=== PATIENT | female | born 1950 | race Caucasian/White ===

== ENCOUNTER → 2016-09-15 | Outpatient (CLI) | payer MEDICARE, BC ==
--- NOTE | 2016-09-15 12:05 | MM ---
Reason for exam: screening (asymptomatic). Last mammogram was performed 1 year ago. History: Patient is postmenopausal and is nulliparous. Family history of breast cancer in paternal cousin and breast cancer in maternal aunt. Took estrogen for 13 years beginning at age 37. Physical Findings: A clinical breast exam by your physician is recommended on an annual basis and results should be correlated with mammographic findings. MG Screening Mammo w CAD Bilateral CC and MLO view(s) were taken. Prior study comparison: September 15, 2015, bilateral MG screening mammo w CAD. September 09, 2014, bilateral MG screening mammo w CAD. September 04, 2013, bilateral MG screening mammo w CAD. The breast tissue is heterogeneously dense. This may lower the sensitivity of mammography. Finding: There are regional and grouped calcifications in both breasts. Group of indeterminate calcifications in the right breast 7cm from the nipple, posterior depth lower aspect. ASSESSMENT: Incomplete: need additional imaging evaluation, BI-RAD 0 RECOMMENDATION: Special view mammogram of the right breast. [facility] will attempt to contact patient to return for supplemental views.
== END | disposition home or self-care (01) ==
LOC: RADMAMWWP 10:49
PROVIDERS: ATTEND Internal Medicine
DX: Z12.31 Encounter for screening mammogram for malignant neoplasm of breast (principal)

== ENCOUNTER → 2016-09-19 | Outpatient (CLI) | payer MEDICARE, BC ==
--- NOTE | 2016-09-19 09:36 | MM ---
Reason for exam: additional evaluation requested from abnormal screening. Last mammogram was performed less than 1 month ago. History: Patient is postmenopausal and is nulliparous. Family history of breast cancer in paternal cousin and breast cancer in maternal aunt. Took estrogen for 13 years beginning at age 37. Physical Findings: Nurse did not find any significant physical abnormalities on exam. MG Work Up Mamm w CAD RT CC and MLO view(s) were taken of the right breast. Prior study comparison: September 15, 2016, bilateral MG screening mammo w CAD. September 15, 2015, bilateral MG screening mammo w CAD. The breast tissue is heterogeneously dense. This may lower the sensitivity of mammography. Finding: There is a 7 mm equal density (isodense), oval mass with calcifications in the lower quadrant, central position of the right breast. These results were verbally communicated with the patient and result sheet given to the patient on 09/19/16. ASSESSMENT: Suspicious, BI-RAD 4 RECOMMENDATION: Surgical consultation and stereotactic core biopsy of the right breast. Called Dr. Holguin with mammographic findings and has scheduled an appointment for the patient for 09/30/16 at 11:[address] Le. PRELIMINARY REPORT CALLED AND FAXED TO DR. LE ON 09/19/16 AT 300/TP.
== END | disposition home or self-care (01) ==
LOC: RADMAMWWP 08:14
PROVIDERS: ATTEND Internal Medicine
DX: R92.8 Other abnormal and inconclusive findings on diagnostic imaging of breast (principal)

== ENCOUNTER → 2016-10-07 | Day surgery (SDC) | payer MEDICARE, BC ==
[2016-10-07 07:46] VITALS: RESP 16; BMI 36.1
--- NOTE | 2016-10-07 08:54 | P.PCN ---
Date of Procedure: 10/07/16 Preoperative Diagnosis: Mammographic abnormality right breast Postoperative Diagnosis: Same Procedure(s) Performed: Right breast stereotactic core biopsy of lesion in the lower quadrant central portion of the right breast Implants: Anesthesia: local Surgeon: Palak Le Estimated Blood Loss (ml): 3 IV fluids (ml): 0 Pathology: other (Breast tissue, stereo cores) Condition: stable Disposition: other Indications for Procedure: Patient is a 66-year-old white female who on a mammogram performed 09/19/2016 was noted to have a 7 mm equal density or femoral mass with calcifications in the lower quadrant central position of the right breast. This was considered suspicious and she was scheduled for a stereotactic core biopsy. On physical examination of both breasts no masses of concern were identified. Operative Findings: Microcalcifications in the core biopsy of right breast lesion Description of Procedure: The patient is a 66-year-old white female who on a routine mammogram was noted to have an area of concern in the right breast. Additional screening revealed a 7 mm equal density mass with calcifications in the lower quadrant central position of the right breast. She was recommended to undergo stereotactic core biopsy. Patient was seen and on physical examination preop she did not have any dominant masses or nodules of concern on multi -positional exam of either breast. Particular attention was paid to the right breast in the lower quadrant region and no lesions of concern were identified. No axillary adenopathy of concern was noted bilaterally. The patient was taken to the stereotactic core biopsy room where the area of concern was identified on the Lorad table. The lesion was located in the lower quadrant central position of the right breast. The shortest distance to approach this was on the CC view from inferior. This approach was used. The breast was prepped using Betadine. One percent lidocaine without epinephrine was used to anesthetize the skin as well as the deep tissue in the breast. A mammotome ST 8-gauge sterile probe was utilized to sample the specimen. The patient was taken to the correct coordinates and multiple core biopsies were obtained. The specimen was radiographed and the microcalcifications of concern were identified. A mammomarTyche 3008 localization marker was placed. The patient tolerated the procedure in stable condition. The specimen was sent for pathology. Breast examination: No dominant mass or nodules of concern in either breast no axillary adenopathy of concern Procedure performed: Stereotactic core biopsy of the right breast Location of the lesion: Lower quadrant central position of the right breast lesion with microcalcifications Approach to target lesion: CC view from inferior, shortest distance Prep: Betadine Local anesthetic: 1% lidocaine without epinephrine Biopsy device used: Mammotome ST 8-gauge sterile probe on the lower Lorad table Specimen radiograph: Confirmation of microcalcifications Marker placement: mammomark2 - [id number]
[2016-10-07 09:02] VITALS: BP 150/98; PULSE 84; TEMP 98.4
--- NOTE | 2016-10-07 13:37 | MM ---
Stereotactic core biopsy right breast. HISTORY: Microcalcifications. The calcifications in question within the right breast were targeted by the undersigned. The examination was performed by the surgeon. Specimen radiograph demonstrates numerous calcifications within the specimen submitted. Post procedural mammogram demonstrates appropriate deployment of radiopaque clip marker. The patient tolerated the procedure well and left the department in stable condition. Pathology results are pending. IMPRESSION: Successful stereotactic core biopsy right breast with pathology results pending. 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 FIBROSIS, CYSTS AND ADENOSIS. Recommendation Follow up ultrasound of the right breast in 6 months. SUSHMAD
== END ==
LOC: RADMAMWWP 07:29
PROVIDERS: ATTEND Surgery
DX: N62 Hypertrophy of breast (principal); N60.21 Fibroadenosis of right breast; N60.31 Fibrosclerosis of right breast; N64.89 Other specified disorders of breast; R92.8 Other abnormal and inconclusive findings on diagnostic imaging of breast; Z88.5 Allergy status to narcotic agent
CPT/HCPCS: 88305; 19081; A4648; J2001

== ENCOUNTER → 2017-04-13 | Outpatient (CLI) | payer MEDICARE, BC ==
--- NOTE | 2017-04-13 10:49 | MM ---
Reason for exam: follow-up at short interval from prior study. Last mammogram was performed 7 months ago. History: Patient is postmenopausal and is nulliparous. Family history of breast cancer in paternal cousin and breast cancer in maternal aunt. Benign MG stereo VAD BX RT of the right breast, October 07, 2016. Took estrogen for 13 years beginning at age 37. Physical Findings: Nurse did not find any significant physical abnormalities on exam. MG Diagnostic Mammo RT w CAD CC and MLO view(s) were taken of the right breast. Prior study comparison: September 19, 2016, right breast MG work up mamm w CAD RT. September 15, 2016, bilateral MG screening mammo w CAD. The breast tissue is heterogeneously dense. This may lower the sensitivity of mammography. No significant new findings when compared with previous films. These results were verbally communicated with the patient and result sheet given to the patient on 04/13/17. ASSESSMENT: Benign, BI-RAD 2 RECOMMENDATION: Return to routine screening mammogram schedule for both breasts. Back on schedule.
== END | disposition home or self-care (01) ==
LOC: RADUSWWP 10:12
PROVIDERS: ATTEND Internal Medicine
DX: R92.8 Other abnormal and inconclusive findings on diagnostic imaging of breast (principal)
CPT/HCPCS: 77065

== ENCOUNTER → 2017-09-20 | Outpatient (CLI) | payer MEDICARE, BC ==
--- NOTE | 2017-09-20 13:14 | MM ---
Reason for exam: screening (asymptomatic). Last mammogram was performed 5 months ago. History: Patient is postmenopausal and is nulliparous. Family history of breast cancer in paternal cousin and breast cancer in maternal aunt. Benign MG stereo VAD BX RT of the right breast, October 07, 2016. Took estrogen for 13 years beginning at age 37. Physical Findings: A clinical breast exam by your physician is recommended on an annual basis and results should be correlated with mammographic findings. MG 3D Screening Mammo W/Cad Bilateral CC and MLO view(s) were taken. XCCM view(s) were taken of the right breast. Prior study comparison: April 13, 2017, right breast MG diagnostic mammo RT w CAD. September 19, 2016, right breast MG work up mamm w CAD RT. The breast tissue is heterogeneously dense. This may lower the sensitivity of mammography. Benign appearing bilateral, predominately right calcifications. No suspicious abnormality. Right biopsy marker noted. ASSESSMENT: Benign, BI-RAD 2 RECOMMENDATION: Routine screening mammogram of both breasts in 1 year.
== END | disposition home or self-care (01) ==
LOC: RADMAMWWP 09:36
PROVIDERS: ATTEND Internal Medicine
DX: Z12.31 Encounter for screening mammogram for malignant neoplasm of breast (principal)
CPT/HCPCS: 77063; 77067

== ENCOUNTER → 2018-12-03 | Outpatient (CLI) | payer MEDICARE, BC ==
--- NOTE | 2018-12-04 16:10 | MM ---
Reason for exam: screening (asymptomatic). Last mammogram was performed 1 year and 2 months ago. History: Patient is postmenopausal and is nulliparous. Family history of breast cancer in paternal cousin and breast cancer in maternal aunt. Benign MG stereo VAD BX RT of the right breast, October 07, 2016. Took estrogen for 13 years beginning at age 37. Physical Findings: A clinical breast exam by your physician is recommended on an annual basis and results should be correlated with mammographic findings. MG 3D Screening Mammo W/Cad Bilateral CC and MLO view(s) were taken. XCCL view(s) were taken of the right breast. Prior study comparison: September 20, 2017, bilateral MG 3d screening mammo w/cad. April 13, 2017, right breast MG diagnostic mammo RT w CAD. The breast tissue is heterogeneously dense. This may lower the sensitivity of mammography. There are benign-appearing bilateral breast calcifications. No suspicious abnormality. There is a right breast biopsy marker noted. No significant new finding when compared with prior studies. ASSESSMENT: Benign, BI-RAD 2 RECOMMENDATION: Routine screening mammogram of both breasts in 1 year.
== END | disposition home or self-care (01) ==
LOC: RADMAMWWP 10:48
PROVIDERS: ATTEND Internal Medicine
DX: Z12.31 Encounter for screening mammogram for malignant neoplasm of breast (principal)
CPT/HCPCS: 77063; 77067

== ENCOUNTER 2019-08-06 13:07 | Emergency (ER) | payer MEDICARE, BC ==
[2019-08-06 13:18] VITALS: BP 151/94; PULSE 91; RESP 20; TEMP 100.4
[2019-08-06 14:11] LABS: Appearance,Urine Cloudy (Clear); Bilirubin,Urine Negative (Negative); Blood,Urine Negative (Negative); Color,Urine Light Yellow; Glucose,Urine (UA) Negative (Negative); Hyaline Casts,Urine 1 /lpf (0-2); Ketones,Urine Negative (Negative); Leukocyte Esterase,Urine Trace (Negative); Mucus,Urine Rare /hpf; Nitrite,Urine Negative (Negative); Protein,Urine Negative (Negative); RBC,Urine <1 /hpf (0-5); Squamous Epithelial Cell,Urine 3 /hpf (0-4); Urobilinogen,Urine <2.0 mg/dL (<2.0); WBC,Urine 4 /hpf (0-5)
--- NOTE | 2019-08-06 14:30 | XR ---
EXAMINATION TYPE: XR chest 2V DATE OF EXAM: 08/06/2019 COMPARISON: None INDICATION: Fever of unknown origin TECHNIQUE: Frontal and lateral views of the chest are obtained. FINDINGS: The heart size is normal. The pulmonary vasculature is normal. The lungs are clear. Cholecystectomy clips are in the right upper quadrant of the abdomen. IMPRESSION: 1. No acute pulmonary process.
--- NOTE | 2019-08-06 14:37 | ED ---
Eye Problem HPI - General Chief complaint: Eye Problems Stated complaint: eye pain Time Seen by Provider: 08/06/19 13:21 Source: patient Mode of arrival: ambulatory Limitations: no limitations - History of Present Illness Initial comments: 68-year-old female presenting today for chief complaint of right eye redness. She states she woke up with the redness. She states she felt like it was dull aching initially she states that when away after a few minutes upon awakening. Patient denies any severe sharp stabbing pains denies any headache or lesions on the face or the scalp. Patient denies any headache nausea vomiting patient denies any visual changes. Patient denies any grinding or exposure to known foreign bodies that may have gotten into the eye. Patient denies any direct trauma to the eye denies any drainage or surrounding redness. Patient has no additional complaints she states she wears glasses. Patient appears well on arrival no distress. Found to have fever 100.4F. however patient denies any abdominal pain diarrhea nausea vomiting chest pain shortness breath sore throat body she denies a dysuria or urgency frequency or history of urinary tract infections. Patient states she really has no complaints and is not sure why she has a fever. She states she does not really want that evaluated and states "I feel fine". - Related Data Home Medications Medication Instructions Recorded Confirmed Atenolol 100 mg PO DAILY 10/03/16 10/07/16 Diclofenac Sodium [Voltaren] 75 tab PO DAILY PRN 10/03/16 10/07/16 Hydrochlorothiazide 25 tab PO DAILY 10/03/16 10/07/16 Lovastatin [Mevacor] 40 tab PO DAILY 10/03/16 10/07/16 Terbinafine [LamISIL] 250 tab PO DAILY 10/03/16 10/07/16 metFORMIN HCL [Glucophage] 500 mg PO BID 10/03/16 10/07/16 Allergies Allergy/AdvReac Type Severity Reaction Status Date / Time codeine AdvReac Nausea & Verified 08/06/19 13:18 Vomiting prochlorperazine AdvReac Nausea & Verified 08/06/19 13:18 [From Compazine] Vomiting Review of Systems ROS Statement: Those systems with pertinent positive or pertinent negative responses have been documented in the HPI. ROS Other: All systems not noted in ROS Statement are negative. Past Medical History Past Medical History: Diabetes Mellitus, Hyperlipidemia, Hypertension Additional Past Medical History / Comment(s): ARTHRITIS History of Any Multi-Drug Resistant Organisms: None Reported Past Surgical History: Cholecystectomy, Hysterectomy, Tonsillectomy Past Anesthesia/Blood Transfusion Reactions: No Reported Reaction Past Psychological History: No Psychological Hx Reported Smoking Status: Never smoker Past Alcohol Use History: None Reported Past Drug Use History: None Reported General Exam - General Exam Comments Initial Comments: General: The patient is awake and alert, in no distress, and does not appear acutely ill. Eye: +3 mm pupils are equal, round and reactive to light, extra-ocular movements are intact. No nystagmus. There is injection of the conjunctiva b/l. No signs of icterus. OD 20/30 OS 20/30 OU 20/30. IOP OD, OS 23. No surrounding redness. No fluorescein uptake and no evidence of foreign body. Right lateral half salt conjunctival hemorrhage Ears, nose, mouth and throat: There are moist mucous membranes and no oral lesions. Neck: The neck is supple, there is no tenderness or JVD. Cardiovascular: There is a regular rate and rhythm. No murmur, rub or gallop is appreciated. Respiratory: Lungs are clear to auscultation, respirations are non-labored, breath sounds are equal. No wheezes, stridor, rales, or rhonchi. Musculoskeletal: Normal ROM, no tenderness. Strength 5/5. Sensation intact. Radial pulses equal bilaterally 2+. Neurological: A&O x 3. CN II-XII intact, There are no obvious motor or sensory deficits. Coordination appears grossly intact. Speech is normal. Skin: Skin is warm and dry and no rashes or lesions are noted. Psychiatric: Cooperative, appropriate mood & affect, normal judgment. Limitations: no limitations Course Vital Signs 08/06/19 13:15 Temperature 100.4 F H Pulse Rate 91 Respiratory 20 Rate Blood Pressure 151/94 O2 Sat by Pulse 97 Oximetry Medical Decision Making - Medical Decision Making 68-year-old feel presenting with right lateral subconjunctival hemorrhage. There is no areas of fluorescein uptake no visual change. Patient is adequate visual acuity. Pressures within acceptable limits. Patient has no pain currently. Normal extraocular eye movements. No trauma. Patient is followed at low-grade fever there is no evidence of orbital cellulitis as cause. No drainage. No focalizing symptoms. Patient CXR clear. Covid (-). UA unremarkable. Patient will be discharged with ophthalmology and primary care follow-up patient is agreeable to this care plan discharge at this time. - Lab Data Lab Results 08/06/19 08/06/19 Range/Units 14:00 14:00 Urine Color Light Yellow Urine Appearance Cloudy H (Clear) Urine pH 5.0 (5.0-8.0) Ur Specific [place] 1.010 (1.001-1.035) Urine Protein Negative (Negative) Urine Glucose (UA) Negative (Negative) Urine Ketones Negative (Negative) Urine Blood Negative (Negative) Urine Nitrite Negative (Negative) Urine Bilirubin Negative (Negative) Urine Urobilinogen <2.0 (<2.0) mg/dL Ur Leukocyte Esterase Trace H (Negative) Urine RBC <1 (0-5) /hpf Urine WBC 4 (0-5) /hpf Ur Squamous Epith Cells 3 (0-4) /hpf Hyaline Casts 1 (0-2) /lpf Urine Mucus Rare H (None) /hpf Coronavirus (PCR) Not Detected (Not Detectd) Disposition Clinical Impression: Subconjunctival hemorrhage, Redness of right eye, Low grade fever Disposition: HOME SELF-CARE Condition: Good Instructions (If sedation given, give patient instructions): Subconjunctival Hemorrhage (ED) Additional Instructions: Please use medication as discussed. Please follow-up with family doctor in the next 2 days, for routine labs/evaluation-secondary to low grade fever. Please return to emergency room if the symptoms increase or worsen or for any other concerns. Is patient prescribed a controlled substance at d/c from ED?: No Referrals: Tomy Holguin MD [Primary Care Provider] - 1-2 days Time of Disposition: 14:37
== END 2019-08-06 14:44 | disposition home or self-care (01) ==
LOC: EC 13:07
DX: Z03.818 Encounter for observation for suspected exposure to other biological agents ruled out (principal); H11.31 Conjunctival hemorrhage, right eye; R50.9 Fever, unspecified; E11.9 Type 2 diabetes mellitus without complications; E78.5 Hyperlipidemia, unspecified; I10 Essential (primary) hypertension; M19.90 Unspecified osteoarthritis, unspecified site; Z79.84 Long term (current) use of oral hypoglycemic drugs; Z79.1 Long term (current) use of non-steroidal anti-inflammatories (NSAID); Z79.899 Other long term (current) drug therapy; Z88.5 Allergy status to narcotic agent; Z88.8 Allergy status to other drugs, medicaments and biological substances
CPT/HCPCS: 71046; 81001; 87635; 99283

== ENCOUNTER → 2021-08-24 | Outpatient (CLI) | payer MEDICARE, BC ==
--- NOTE | 2021-08-25 11:05 | MM ---
Reason for Exam: Additional evaluation requested from abnormal screening. Last screening mammogram was performed less than 1 month ago. Patient History: Menarche at age 10. Patient has no children. Left ovary removed at age 37. Right ovary removed at age 37. Hysterectomy at age 37. Postmenopausal. Estrogen for 13 years from age 37 until age 50. 10/07/2016, Benign Core Biopsy on the right side. Paternal cousin had breast cancer. Maternal aunt had breast cancer. Risk Values: Tatiana 5 year model risk: 2.3%. NCI Lifetime model risk: 5.7%. Film Views: 3D and 2D Synthesized Bilateral CC magnification views were taken. 3D and 2D Synthesized Bilateral ML magnification views were taken. 3D and 2D Synthesized Bilateral LM views were taken. Prior Study Comparison: 12/03/2018 Bilateral Screening Mammogram, [facility]. 08/17/2021 Bilateral Screening Mammogram, [facility]. Tissue Density: The breast tissue is heterogeneously dense. This may lower the sensitivity of mammography. Findings: Analyzed By CAD. Regional and grouped calcifications 10 'clock posterior right breast have increased. These are heterogeneous, biopsy recommended. New punctate grouped calcifications in the left breast at 2 o'clock are new, biopsy recommended. These results were verbally communicated with the patient at the time of exam. Overall Assessment: Suspicious, BI-RAD 4 Management: Stereotactice Core Biopsy of both breasts. Right 10 o'clock posterior calcifications. Left 2 o'clock calcifications.
== END | disposition home or self-care (01) ==
LOC: RADMAMWWP 08:57
PROVIDERS: ATTEND Internal Medicine
DX: R92.1 Mammographic calcification found on diagnostic imaging of breast (principal); Z78.0 Asymptomatic menopausal state; Z90.721 Acquired absence of ovaries, unilateral; Z80.3 Family history of malignant neoplasm of breast
CPT/HCPCS: 77066; G0279; 77062

== ENCOUNTER → 2021-09-17 | Outpatient (CLI) | payer MEDICARE, BC ==
[2021-09-17 07:32] VITALS: BP 145/88; PULSE 75; RESP 16; TEMP 98.7
--- NOTE | 2021-09-17 07:49 | P.PN ---
Subjective Progress Note Date: 09/17/21 Principal diagnosis: Abnormal bilateral mammogram This is a 71-year-old white female seen in consultation for Dr. Holgu[place] [address]. [place] [address] is special views of both breasts [place]. [place] [address] the findings were 10:00 posterior right breast regional group calcifications which had increased. In addition calcifications were noted in the left breast at the 2 o'clock position for which biopsy was recommended. Bilateral stereotactic core breast biopsies were recommended. Of importance is the fact that the [place] [address] which was benign. The patient does not feel any new lumps masses or nodules of concern in either breast. She is not complaining of any recent breast trauma or infection the breast. Caffeine: 2 pop/day nicotine: none chocolate: occasional BCP: none hormones: hysterectomy at 37 and took them until 50, premarin Family History: maternal aunt: of breast cancer paternal cousin: breast cancer sister: bladder cancer Hormonal History: menarche: 10 G0 menopause: hysterectomy at 37 both ovaries were removed; done for pain and she was on Premarin for approximately 14 years Surgical history: Hysterectomy bilateral salpingo-oophorectomy gallbladder tonsil and adenoids Medical History: diabetes/ diet controlled Social History: nicotine: none alcohol: none drugs: none Review of systems: Constitutional: Negative Heart: none Lungs: none GI: none : none psych: none Musculoskeletal:arthritis allergies: as noted bleeding: none Objective - Constitutional General appearance: Present: cooperative - EENT Eyes: Present: EOMI ENT: Present: hearing grossly normal - Neck Neck: Present: normal ROM - Respiratory Respiratory: bilateral: CTA - Cardiovascular Heart sounds: normal: S1, S2 - Gastrointestinal General gastrointestinal: Present: soft - Integumentary Integumentary: Present: normal turgor - Musculoskeletal Musculoskeletal: Present: gait normal - Psychiatric Psychiatric: Present: A&O x's 3, appropriate affect, intact judgment & insight - Additional findings Additional findings: Breast Exam: BRA: 42B Inspection: Bilateral grade 3 ptosis Palpation: Right breast: Multiple positional exam fibrocystic changes no dominant masses or nodules of concern Right axilla: No adenopathy of concern Left breast: Multi-positional exam fibrocystic changes no dominant masses or nodules of concern Left axilla: No adenopathy of concern Assessment and Plan Assessment: Impression: Bilateral mammographic abnormality microcalcifications Fibrocystic breast changes Plan: Bilateral stereotactic core biopsy Risk and benefits of the procedure discussed with the patient. Risks include but are not limited to bleeding, infection, reaction to the anesthetic. If the lesion biopsy were to be discordant and possible further tissue acquisition would be necessary. The patient understands and wishes to proceed. CC: Dr. Holguin
== END ==
LOC: WWCWWP 06:43
PROVIDERS: ATTEND Surgery
DX: N60.12 Diffuse cystic mastopathy of left breast (principal); N60.11 Diffuse cystic mastopathy of right breast; E11.9 Type 2 diabetes mellitus without complications; R92.1 Mammographic calcification found on diagnostic imaging of breast; Z88.5 Allergy status to narcotic agent; Z88.8 Allergy status to other drugs, medicaments and biological substances

== ENCOUNTER → 2021-09-17 | Day surgery (SDC) | payer MEDICARE, BC ==
[2021-09-17 07:11] VITALS: RESP 16; TEMP 98.7
--- NOTE | 2021-09-17 09:13 | P.PCN ---
Date of Procedure: 09/17/21 Preoperative Diagnosis: Bilateral microcalcifications of concern on mammograms Postoperative Diagnosis: Same Procedure(s) Performed: Bilateral stereotactic core breast biopsies Anesthesia: local Surgeon: Palak Le Pathology: other (Left breast: Breast tissue microcalcifications of concern identified and radiograph of specimenRight breast: Breast tissue, microcalcifica tions of concern identified and radiograph of specimen) Condition: stable Disposition: same day Indications for Procedure: Bilateral mammographic microcalcifications of concern Operative Findings: Radiograph of breast tissue bilateral breast reveals microcalcifications of concern Description of Procedure: Nancy is a 71-year-old white female who was noted on a routine mammogram to have microcalcifications of concern in both breasts. She was recommended to undergo bilateral stereotactic core biopsy. Risks and benefits of the procedure were discussed with the patient; she understood and wished to proceed. Alternatives such as watchful waiting or open biopsy were considered but not recommended. Breasts: Lesion upper outer quadrant Right breast: Lesion upper outer quadrant The patient was taken to the stereotactic core biopsy room. She was positioned prone on the lo-rad table. The left breast was approached initially. The lesion was in the upper outer quadrant. A lateral to medial approach was utilized. A cheese cutter film was obtained. The area of concern was identified. The lesion was targeted. The breast was prepped using Betadine. 20 mL of 1% lidocaine were used to anesthetize the area of concern. A 9-gauge vacuum- assisted core rotating biopsy needle was driven to the correct coordinates. Prefire films were obtained and the needle was noted to be in the correct location. The needle was fired. Post-fire films revealed the needle to be in the correct location. Multiple core biopsy specimens were obtained and the specimens were radiographed. The calcifications of concern were noted to be in the specimens. A secure pam top hat Clip was placed. The clip was noted to be in the correct location. The patient was repositioned on the lo-rad table. A CC from above approach was utilized for the right breast. A cheese cutter film was obtained. The lesion of concern was identified. The lesion was targeted. The breast was prepped using Betadine. 20 mL of 1% lidocaine were used to anesthetize the area of concern. A 9-gauge vacuum-assisted core rotating biopsy needle was driven to the correct coordinates. Prefire films were obtained and the needle was noted to be in the correct location. The needle was fired. Post fire films again revealed the needle to be in the correct location. Approximately 6 core biopsy specimens were obtained. The specimens were radiographed. The calcifications of concern were noted to be in the specimen. A secure pam top hat clip was placed. The clip was noted to be in the correct location. All specimens were sent to pathology. The patient will follow-up with Dr. Mendez next week. A postprocedure bilateral mammogram will be performed to be confirm location of clip placement.
[2021-09-17 09:21] VITALS: BP 129/84; PULSE 79
--- NOTE | 2021-09-28 14:00 | MM ---
Date of Procedure: 09/17/21 Preoperative Diagnosis: Bilateral microcalcifications of concern on mammograms Postoperative Diagnosis: Same Procedure(s) Performed: Bilateral stereotactic core breast biopsies Anesthesia: local Surgeon: Palak Le Pathology: other (Left breast: Breast tissue microcalcifications of concern identified and radiograph of specimenRight breast: Breast tissue, microcalcifications of concern identified and radiograph of specimen) Condition: stable Disposition: same day Indications for Procedure: Bilateral mammographic microcalcifications of concern Operative Findings: Radiograph of breast tissue bilateral breast reveals microcalcifications of concern Description of Procedure: Nancy is a 71-year-old white female who was noted on a routine mammogram to have microcalcifications of concern in both breasts. She was recommended to undergo bilateral stereotactic core biopsy. Risks and benefits of the procedure were discussed with the patient; she understood and wished to proceed. Alternatives such as watchful waiting or open biopsy were considered but not recommended. Breasts: Lesion upper outer quadrant Right breast: Lesion upper outer quadrant The patient was taken to the stereotactic core biopsy room. She was positioned prone on the lo-rad table. The left breast was approached initially. The lesion was in the upper outer quadrant. A lateral to medial approach was utilized. A student records coordinator film was obtained. The area of concern was identified. The lesion was targeted. The breast was prepped using Betadine. 20 mL of 1% lidocaine were used to anesthetize the area of concern. A 9-gauge vacuum- assisted core rotating biopsy needle was driven to the correct coordinates. Prefire films were obtained and the needle was noted to be in the correct location. The needle was fired. Post-fire films revealed the needle to be in the correct location. Multiple core biopsy specimens were obtained and the specimens were radiographed. The calcifications of concern were noted to be in the specimens. A secure pam top hat Clip was placed. The clip was noted to be in the correct location. The patient was repositioned on the lo-rad table. A CC from above approach was utilized for the right breast. A student records coordinator film was obtained. The lesion of concern was identified. The lesion was targeted. The breast was prepped using Betadine. 20 mL of 1% lidocaine were used to anesthetize the area of concern. A 9-gauge vacuum-assisted core rotating biopsy needle was driven to the correct coordinates. Prefire films were obtained and the needle was noted to be in the correct location. The needle was fired. Post fire films again revealed the needle to be in the correct location. Approximately 6 core biopsy specimens were obtained. The specimens were radiographed. The calcifications of concern were noted to be in the specimen. A secure pam top hat clip was placed. The clip was noted to be in the correct location. All specimens were sent to pathology. The patient will follow-up with Dr. Mendez next week. A postprocedure bilateral mammogram will be performed to be confirm location of clip placement. JP
== END ==
LOC: RADMAMWWP 06:47
PROVIDERS: ATTEND Surgery
DX: D05.12 Intraductal carcinoma in situ of left breast (principal); D24.1 Benign neoplasm of right breast; N60.11 Diffuse cystic mastopathy of right breast
CPT/HCPCS: 88305; 88342; 88341; 19081; 19082; A4648; J2001

== ENCOUNTER → 2021-09-23 | Outpatient (CLI) | payer MEDICARE, BC ==
[2021-09-23 14:19] VITALS: BP 150/91; PULSE 78; RESP 16; TEMP 98.3
--- NOTE | 2021-09-23 15:12 | P.PN ---
Subjective Progress Note Date: 09/23/21 Principal diagnosis: DCIS left breast Abnormal bilateral mammogram This is a 71-year-old white female seen in consultation for Dr. Holguin regarding a mammographic abnormality bilaterally on . She underwent a bilateral screening mammogram on is special views of both breasts were recommended. These were performed on the findings were 10:00 posterior right breast regional group calcifications which had increased. In addition calcifications were noted in the left breast at the 2 o'clock position for which biopsy was recommended. Bilateral stereotactic core breast biopsies were recommended. Of importance is the fact that the patient had a prior right breast core biopsy on which was benign. The patient does not feel any new lumps masses or nodules of concern in either breast. She is not complaining of any recent breast trauma or infection the breast. 09-23-21 The patient on 09-17-21 underwent a bilateral breat stero biopsy. The right breast was benign, the left revealed DCIS. The clip had migrated about 1 cm lateral on the left side. The patient tolerated the procedure with some bilateral mild oozing. Caffeine: 2 pop/day nicotine: none chocolate: occasional BCP: none hormones: hysterectomy at 37 and took them until 50, premarin Family History: maternal aunt: of breast cancer paternal cousin: breast cancer sister: bladder cancer Hormonal History: menarche: 10 G0 menopause: hysterectomy at 37 both ovaries were removed; done for pain and she was on Premarin for approximately 14 years Surgical history: Hysterectomy bilateral salpingo-oophorectomy gallbladder tonsil and adenoids Medical History: diabetes/ diet controlled Social History: nicotine: none alcohol: none drugs: none Review of systems: Constitutional: Negative Heart: none Lungs: none GI: none : none psych: none Musculoskeletal:arthritis allergies: as noted bleeding: none Objective - Vital Signs Vital signs: Vital Signs Temp 98.3 F 09/23/21 14:16 Pulse 78 09/23/21 14:16 Resp 16 09/23/21 14:16 BP 150/91 09/23/21 14:16 Pulse Ox 96 09/23/21 14:16 FiO2 Intake & Output 09/22/21 09/23/21 09/23/21 18:59 06:59 18:59 Weight 103.419 kg - Exam BMI: 33.7 - Constitutional General appearance: Present: cooperative - EENT Eyes: Present: EOMI ENT: Present: hearing grossly normal - Neck Neck: Present: normal ROM - Respiratory Respiratory: bilateral: CTA - Cardiovascular Heart sounds: normal: S1, S2 - Integumentary Integumentary: Present: normal turgor - Psychiatric Psychiatric: Present: A&O x's 3, appropriate affect, intact judgment & insight - Additional findings Additional findings: Breast examination: Visual inspection of the breast reveals bilateral ecchymosis, no evidence of infection No hematoma on the right, small hematoma on the left Assessment and Plan Assessment: Impression: Fibrocystic breast changes on the right Small focus of DCIS on the left Plan: Presentation of case at tumor board Appointment with radiation oncology appointment with medical oncology CC: Dr. Holguin
== END ==
LOC: WWCWWP 14:02
PROVIDERS: ATTEND Surgery
DX: N60.11 Diffuse cystic mastopathy of right breast (principal); D05.12 Intraductal carcinoma in situ of left breast; D05.11 Intraductal carcinoma in situ of right breast; E11.9 Type 2 diabetes mellitus without complications; Z88.5 Allergy status to narcotic agent; Z88.8 Allergy status to other drugs, medicaments and biological substances

== ENCOUNTER → 2021-11-04 | Outpatient (CLI) | payer MEDICARE, BC ==
[2021-11-04 15:19] VITALS: BP 141/94; PULSE 53; RESP 17; TEMP 98.2
--- NOTE | 2021-11-04 15:32 | P.PN ---
Subjective Progress Note Date: 11/04/21 Principal diagnosis: DCIS left breast DCIS left breast Abnormal bilateral mammogram This is a 71-year-old white female seen in consultation for Dr. Holgu[place] [id number]. [place] [address] is special views of both breasts were recommended. These were performed on the findings were 10:00 posterior right breast regional group calcifications which had increased. In addition calcifications were noted in the left breast at the 2 o'clock position for which biopsy was recommended. Bilateral stereotactic core breast biopsies were recommended. Of importance is the fact that the patient had a prior right breast core biopsy on which was benign. The patient does not feel any new lumps masses or nodules of concern in either breast. She is not complaining of any recent breast trauma or infection the breast. 09-23-21 The patient on 09-17-21 underwent a bilateral breat stero biopsy. The right breast was benign, the left revealed DCIS. The clip had migrated about 1 cm lateral on the left side. The patient tolerated the procedure with some bilateral mild oozing. 10-07-[address] Chance 10-19-21 case presented at tumor board; patient declined genetic testing Caffeine: 2 pop/day nicotine: none chocolate: occasional BCP: none hormones: hysterectomy at 37 and took them until 50, premarin Family History: maternal aunt: of breast cancer paternal cousin: breast cancer sister: bladder cancer Hormonal History: menarche: 10 G0 menopause: hysterectomy at 37 both ovaries were removed; done for pain and she was on Premarin for approximately 14 years Surgical history: Hysterectomy bilateral salpingo-oophorectomy gallbladder tonsil and adenoids Medical History: diabetes/ diet controlled Social History: nicotine: none alcohol: none drugs: none Review of systems: Constitutional: Negative Heart: none Lungs: none GI: none : none psych: none Musculoskeletal:arthritis allergies: as noted bleeding: none Objective - Constitutional General appearance: Present: cooperative - EENT Eyes: Present: EOMI ENT: Present: hearing grossly normal - Neck Neck: Present: normal ROM - Respiratory Respiratory: bilateral: CTA - Cardiovascular Heart sounds: normal: S1, S2 Abnormal Heart Sounds: Present: systolic murmur - Gastrointestinal General gastrointestinal: Present: soft - Integumentary Integumentary: Present: normal turgor - Musculoskeletal Musculoskeletal: Present: gait normal - Psychiatric Psychiatric: Present: A&O x's 3, appropriate affect, intact judgment & insight - Additional findings Additional findings: Breast Exam: BRA: 42B inspection: grade 3 ptosis Operation: Right breast: Multi-positional exam fibrocystic changes no dominant masses or nodules of concern Right axilla: No adenopathy of concern Left breast: Multi-positional exam fibrocystic changes no dominant masses or nodules of concern Left axilla: No adenopathy of concern Assessment and Plan Assessment: Impression: Left breast ductal carcinoma in situ Atrial fibrillation Diabetes Plan: Needle localization lumpectomy left breast, no mastopexy incision; there appears to have been some lateral migration of the clip placed at biopsy which was be taken into account at the time of needle localization. Endocrine: The case was reviewed with Dr. Mercado. It does appear that there is about a centimeter of lateral migration of the clip. He has recommended lateral to medial needle localization with extension of the excision slightly beyond for the clip was located. Risk and benefits of the procedure discussed with the patient. Risks include but are not limited to bleeding, infection, reaction to the anesthetic. The patient understands and wishes to proceed. CC: Dr. Holguin
== END ==
LOC: WWCWWP 15:06
PROVIDERS: ATTEND Surgery
DX: D05.12 Intraductal carcinoma in situ of left breast (principal); I48.91 Unspecified atrial fibrillation; E11.9 Type 2 diabetes mellitus without complications; Z88.5 Allergy status to narcotic agent; Z88.8 Allergy status to other drugs, medicaments and biological substances

== ENCOUNTER → 2021-11-05 | Outpatient (CLI) | payer MEDICARE, BC ==
--- NOTE | 2021-11-08 07:44 | CT ---
EXAMINATION TYPE: CT soft tissue neck wo con DATE OF EXAM: 11/05/2021 COMPARISON: None HISTORY: 71 year-old female M54.2, posterior neck pain that radiates into shoulder TECHNIQUE: Contiguous axial scanning of the soft tissues of the neck without IV contrast. Coronal and sagittal reconstructions performed. CT DLP: 636.30 mGycm Automated exposure control for dose reduction was used. FINDINGS: Ectatic ascending aorta through 3.7 cm. Borderline enlarged right and left main pulmonary arteries me asuring up to 3.0 cm. Correlate for pulmonary hypertension. There is bovine configuration to the aortic arch along with very direct takeoff of the left vertebral artery directly from the aortic arch. Benign hyperostosis frontalis interna. Associated bifrontal calvarial artifacts. Otherwise, visualize d intracranial structures, orbits and globes, paranasal sinuses, and mastoid air cells appear clear. Rightward nasal septal deviation. Lack of IV contrast limits assessment of the cervical mucosal space, lymph nodes, and vascular struct ures. Allowing for this limitation, the nasopharynx appears clear. There is soft tissue asymmetry at the level of the right tonsillar pillar. Additional asymmetric part ial soft tissue effacement right piriform sinus. This may be positional or secondary to some asymmetr ic palatine tonsillar hypertrophy. Direct visualization by ENT is recommended. Epiglottis and prevertebral soft tissues are satisfactory. Otherwise, glottic and subglottic structures as well as the tracheal column and visualized upper lung s are clear. Possible 9 mm nodule lower pole left thyroid lobe can be further evaluated with thyroid ultrasound. The submandibular and bilateral parotid glands are visualized without gross abnormality. No cervical lymphadenopathy by CT size criteria. There is subtle cutaneous lesion along the lateral r ight jaw, probably a normal. Correlate with direct inspection. Axial image 60 and coronal image 33. There is moderate to advanced disc/endplate degenerative change from C4 through T2 levels. Degenerati ve grade 1 anterolisthesis C3-C4. Multilevel hypertrophic facet arthropathy, particularly towards the left. Moderate to severe left neuroforaminal stenosis at C3-C4, moderate on the right at C5-C6. IMPRESSION: 1. SOFT TISSUE ASYMMETRY AT THE LEVEL OF THE RIGHT TONSILLAR PILLAR AND RIGHT PIRIFORM SINUS. THIS MA Y BE POSITIONAL OR SECONDARY TO SOME ASYMMETRIC PALATINE TONSILLAR HYPERTROPHY. DIRECT VISUALIZATION BY ENT IS RECOMMENDED TO EXCLUDE A MUCOSAL LESION HERE. 2. POSSIBLE 9 MM LEFT LOWER POLE THYROID NODULE CAN BE FURTHER EVALUATED WITH THYROID ULTRASOUND. 3. CUTANEOUS LESION ALONG THE RIGHT LATERAL JAW, PROBABLY A MOLE. CORRELATE WITH DIRECT INSPECTION. 4. MODERATE TO ADVANCED SPONDYLOTIC CHANGE IN THE CERVICAL SPINE ABOVE, GREATER TOWARDS THE LEFT. 5. INCIDENTAL: FINDINGS MAY REFLECT UNDERLYING PULMONARY ARTERIAL HYPERTENSION.
== END | disposition home or self-care (01) ==
LOC: RADCTMAIN 15:02
PROVIDERS: ATTEND Internal Medicine
DX: M47.812 Spondylosis without myelopathy or radiculopathy, cervical region (principal); M99.71 Connective tissue and disc stenosis of intervertebral foramina of cervical region
CPT/HCPCS: 70490

== ENCOUNTER → 2021-11-17 | Outpatient (CLI) | payer MEDICARE, BC ==
--- NOTE | 2021-11-18 08:46 | US ---
EXAMINATION TYPE: US thyroid st tissue head/neck DATE OF EXAM: 11/17/2021 COMPARISON: CT 11/05/2021 CLINICAL HISTORY: 71-year-old female R22.0 SWELLING/MASS. CT showed left thyroid nodule. GLAND SIZE: Right Lobe: 3.7 x 1.3 x 1.5 cm Overall Parenchyma: heterogenous Left Lobe: 4.2 x 1.5 x 1.5 cm Overall Parenchyma: heterogeneous Isthmus Thickness: 0.3 cm NODULES RIGHT: # of nodules measured on right: 0 LEFT: # of nodules measured on left: 3 1. 1.1 X 0.9 x 0.7 cm, mid lateral, mixed cystic and solid, hyperechoic TR 3 nodule, which is wider than tall, with smooth margins, without echogenic foci. Prior size: no prior 2. 0.8 X 0.5 x 0.6 cm, lower lateral, mixed cystic and solid, isoechoic TR 3 nodule, which is wide r than tall, with smooth margins, without echogenic foci. Prior size: no prior 3. 1.0 X 1.0 x 0.7 cm, lower mid, mixed cystic and solid, isoechoic TR 3 nodule, which is wider constance n tall, with smooth margins, without echogenic foci. Prior size: no prior ISTHMUS: # of nodules measured in the isthmus: 0 Bilateral neck scanned, no evidence of lymphadenopathy. IMPRESSION: Three mixed solid cystic TR3 nodules in the left lobe ranging in size from 0.8 cm to 1.1 cm. These ca n be followed by ultrasound. FNA if they reach 2.5 cm or sooner if their characteristics change.
== END | disposition home or self-care (01) ==
LOC: RADUSWWP 16:08
PROVIDERS: ATTEND Internal Medicine
DX: R22.0 Localized swelling, mass and lump, head (principal)
CPT/HCPCS: 76536

== ENCOUNTER → 2021-12-16 | Outpatient (CLI) | payer MEDICARE, BC ==
--- NOTE | 2021-12-16 19:21 | BD ---
EXAMINATION TYPE: Axial Bone Density DATE OF EXAM: 12/16/2021 CLINICAL HISTORY: 71 years year old Female. ICD-10 CODE: D05.12 INTRADUCTAL CARCINOMA IN SITU OF DARRYN LICONA Height: 67.5 Weight: 224.1 FRAX RISK QUESTIONS: Alcohol (3 or more units per day): NO Family History (Parent hip fracture): NO Glucocorticoids (More than 3mos): NO History of Fracture in Adulthood: NO Secondary Osteoporosis: 1. Type 1 Diabetes: NO 2. Hyperthyroidism: NO 3. Menopause before 45: YES 4. Malnutrition: NO 5. Chronic liver disease: NO Rheumatoid Arthritis: NO Current Tobacco Use: NO RISK FACTORS HISTORY OF: Hip Fracture (Right/Left): NO Spine Fracture: NO History of Wrist Fracture: NO Surgery to Spine/Hip(right/left)/Wrist (right/left): NO Family History of Osteoporosis: MOTHER Active: YES Diet low in dairy products/other sources of calcium: YES Postmenopausal woman: YES Take estrogen and/or progesterone medications: NO Lost more than 2 inches in height since high school: NO Frequent falls: NO Poor Health: NO Hyperparathyroidism: NO Adrenal Insufficiency: NO MEDICATIONS: Prednisone or other steroids: NO Thyroid Medications: NO Osteoporosis Medications: NO Additional Medications: METFORMIN, AMLODIPINE, METROPROLOL, LOVASTATIN, BP MEDS, Additional History: BREAST CA. 2021 EXAM MEASUREMENTS: Bone mineral densitometry was performed using the [employer]. Bone mineral density as measured about the Lumbar spine is: ----- L1-L4(G/cm2): 1.532 T Score Values are as follows: ----- L1: 1.9 ----- L2: 2.1 ----- L3: 3.5 ----- L4: 3.9 ----- L1-L4: Bone mineral density has: DECREASED 1.4 % since study of: 07/11/2007 Bone mineral density about the R hip (g/cm2): 0.987 Bone mineral density about the L hip (g/cm2): 1.127 T Score values are as follows: -----R Neck: -0.4 -----L Neck: 0.6 -----R Total: 1.2 -----L Total: 1.7 Bone mineral density has: DECREASED 0.1 % since study of: 07/11/2007 FRAX%s: The graph provided illustrates a 4.2% chance for a major osteoporotic fx and a 0.4% chance fo r the hips probability for fx in 10 years time. IMPRESSION: Normal (Values between +1 and -1 indicate normal bone mass). Consider repeating this study in 5 year s or sooner if there is some new clinical indication. NOTE: T-SCORE=SD OF THE YOUNG ADULT MEAN.
== END | disposition home or self-care (01) ==
LOC: RADBDWWP 14:41
PROVIDERS: ATTEND Internal Medicine Hematology & Oncology
DX: D05.12 Intraductal carcinoma in situ of left breast (principal); Z78.0 Asymptomatic menopausal state
CPT/HCPCS: 77080

== ENCOUNTER → 2022-04-04 | Outpatient (CLI) | payer MEDICARE, BC ==
[2022-04-04 14:08] LABS: ALT 12 U/L (8-44); AST 16 U/L (13-35); Chol/HDL Ratio 2.32 Ratio; LDL Cholesterol,Calculated 52.9 mg/dL (0.0-131.0)
== END | disposition home or self-care (01) ==
LOC: LABWHC1 08:03
PROVIDERS: ATTEND Internal Medicine Interventional Cardiology
DX: E78.2 Mixed hyperlipidemia (principal)
CPT/HCPCS: 36415; 80061; 84450; 84460

== ENCOUNTER → 2022-04-15 | Outpatient (CLI) | payer MEDICARE, BC ==
[2022-04-15 15:43] VITALS: BP 159/92; PULSE 59; RESP 17; TEMP 98.3
--- NOTE | 2022-04-15 15:57 | P.PN ---
Subjective Progress Note Date: 04/15/22 Principal diagnosis: left breast DCIS 4mm Nancy is a 71 year old white female status post a left breast lumpectomy for DCIS on 11-23-21. She had a 4 mm area of ductal carcinoma in situ. The margins were negative. She saw a radiation oncology and discussed radiation therapy but opted for close surveillance. That note from Dr. Chance [place] [id number]. She was seen by Dr. Bishop and is presently on letrazole. She is tolerating this without difficulty. She is not complaining of any new lumps masses or nodules of concern in either breast. She does have persistent left shooting pains in the medial aspect of the breast. She has them about 4 days a week. She does not know what causes them. This is a fleeting pain it does not last long. She does not take medication for this. She does get a rash under her left breast intermittently. She treats this with Neosporin or Corticosporin cream and this seems to resolve it. Her last mammogram was a bilateral screening mammogram and [id number]. Additional evaluation was performed and [id number]. Stereotactic core biopsy was recommended of both breasts at that time. Right breast 10:00 posterior calcifications of left breast 2:00. [place] [address]. The right breast revealed fibrotic fibroadenomatoid stromal hyperplasia in the left breast revealed DCIS. She is presently on Letrazole. Caffeine: 2 pop/day nicotine: none chocolate: occasional BCP: none hormones: hysterectomy at 37 and took them until 50, premarin Family History: maternal aunt: of breast cancer paternal cousin: breast cancer sister: bladder cancer Hormonal History: menarche: 10 G0 menopause: hysterectomy at 37 both ovaries were removed; done for pain and she was on Premarin for approximately 14 years Surgical history: Hysterectomy bilateral salpingo-oophorectomy gallbladder tonsil and adenoids Medical History: diabetes/ diet controlled Social History: nicotine: none alcohol: none drugs: none Review of systems: Constitutional: Negative Heart: none Lungs: none GI: none : none psych: none Musculoskeletal:arthritis allergies: as noted bleeding: none Objective - Vital Signs Vital signs: Vital Signs Temp 98.3 F 04/15/22 15:42 Pulse 59 L 04/15/22 15:42 Resp 17 04/15/22 15:42 BP 159/92 04/15/22 15:42 Pulse Ox 98 04/15/22 15:42 FiO2 Intake & Output 04/14/22 04/15/22 04/15/22 18:59 06:59 18:59 Weight 99.337 kg - Constitutional General appearance: Present: cooperative - EENT Eyes: Present: EOMI ENT: Present: hearing grossly normal - Neck Neck: Present: normal ROM - Respiratory Respiratory: bilateral: CTA - Cardiovascular Rhythm: regular Heart sounds: normal: S1, S2 - Gastrointestinal General gastrointestinal: Present: soft - Integumentary Integumentary: Present: normal turgor - Musculoskeletal Musculoskeletal: Present: gait normal - Psychiatric Psychiatric: Present: A&O x's 3, appropriate affect, intact judgment & insight - Allied health notes Allied Health Notes Comment(s): Breast Exam: BRA: 42C Inspection: Rash under her left breast/questionable fungal infection, bilateral grade 3 ptosis Palpation: Right breast: Multiple positional exam fibrocystic changes no dominant masses or nodules of concern Right axilla: No adenopathy of concern Left breast: Multi-positional exam fibrocystic changes no dominant masses or no dules of concern Left axilla: No adenopathy of concern Assessment and Plan Assessment: Impression: Left breast DCIS wide excision no radiation is on an aromatase inhibitor No evidence of recurrent DCIS Patient due for bilateral mammogram Rash under her left breast may be fungal Plan: Bilateral mammogram Nystatin Follow up after bilateral mammogram CC: Dr. Holguin
== END ==
LOC: WWCWWP 14:32
PROVIDERS: ATTEND Surgery
DX: R92.8 Other abnormal and inconclusive findings on diagnostic imaging of breast (principal); E11.9 Type 2 diabetes mellitus without complications; Z88.5 Allergy status to narcotic agent; Z88.8 Allergy status to other drugs, medicaments and biological substances

== ENCOUNTER → 2022-04-19 | Outpatient (CLI) | payer MEDICARE, BC ==
[2022-04-19 18:31] LABS: Basophils # (A) 0.05 X 10*3/uL (0.00-0.10); Basophils % (A) 0.7 %; Eosinophils # (A) 0.17 X 10*3/uL (0.04-0.35); Eosinophils % (A) 2.4 %; HCT 39.9 % (37.2-46.3); HGB 12.5 g/dL (12.0-15.0); Immature Grans, Automated 0.1 %; Lymphocytes # (A) 2.35 X 10*3/uL (0.90-5.00); Lymphocytes % (A) 33.4 %; MCHC 31.3 g/dL (32.0-37.0); MCV 89.5 fL (80.0-97.0); Mean Platelet Volume 9.5 fL (9.5-12.2); Monocytes % (A) 7.1 %; NRBC Per 100 WBC 0 /100 WBCS (0.0-0.0); Neutrophils # (A) 3.96 X 10*3/uL (1.80-7.70); Neutrophils % (A) 56.3 %; Platelet Count 226 X 10*3/uL (140-440); RBC 4.46 X 10*6/uL (4.10-5.20); RDW 12.8 % (11.5-14.5); WBC 7.04 X 10*3/uL (4.50-10.00)
[2022-04-19 18:56] LABS: Erythrocyte Sedimentation Rate 6 mm/Hr (0-30)
== END | disposition home or self-care (01) ==
LOC: LABWHC1 11:56
PROVIDERS: ATTEND Ophthalmology
DX: I77.6 Arteritis, unspecified (principal)
CPT/HCPCS: 36415; 85025; 85652; 86140

== ENCOUNTER → 2022-10-14 | Outpatient (CLI) | payer MEDICARE, BC ==
[2022-10-14 16:32] LABS: ALT 11 U/L (8-44); AST 16 U/L (13-35); Albumin 4.1 d/dL (3.8-4.9); Albumin/Globulin Ratio 1.78 Ratio (1.60-3.17); Alkaline Phosphatase 56 U/L (41-126); BUN/Creat Ratio 31.29 Ratio (12.00-20.00); Blood Urea Nitrogen 21.9 mg/dL (9.0-27.0); Calcium 9.6 mg/dL (8.7-10.3); Chloride 105 mmol/L (96-109); Chol/HDL Ratio 2.17 Ratio; Globulin 2.3 d/dL (1.6-3.3); Glucose 154 mg/dL (70-110); LDL Cholesterol,Calculated 48.2 mg/dL (0.0-131.0); Potassium 4.6 mmol/L (3.5-5.5); Sodium 142 mmol/L (135-145); Total Bilirubin 0.7 mg/dL (0.3-1.2); Total Protein 6.4 d/dL (6.2-8.2); VLDL Calculation 14.44 mg/dL (5.00-40.00)
== END | disposition home or self-care (01) ==
LOC: LABWHC1 09:52
PROVIDERS: ATTEND Nurse Practitioner Adult Health
DX: I10 Essential (primary) hypertension (principal); E78.2 Mixed hyperlipidemia
CPT/HCPCS: 36415; 80053; 80061

== ENCOUNTER → 2022-11-10 | Outpatient (CLI) | payer MEDICARE, BC ==
[2022-11-10 14:39] VITALS: BP 134/86; PULSE 92; RESP 17; TEMP 97.8
--- NOTE | 2022-11-10 14:51 | P.PN ---
Subjective Progress Note Date: 11/10/22 left breast DCIS 4mm Nancy is a 72 year old white female status post a left breast lumpectomy for DCIS on 11-23-21. She had a 4 mm area of ductal carcinoma in situ. The margins were negative. She saw a radiation oncology and discussed radiation therapy but opted for close surveillance. She was seen by Dr. Bishop and is presently on letrazole. She is tolerating this without difficulty. She is not complaining of any new lumps masses or nodules of concern in either breast. She is resolution of the left shooting pains in the medial aspect of the breast. She does not know what caused them. This was a fleeting pain it did not last long. Rash under her left breast is also resolved. Her last mammogram was a bilateral screening mammogram 05-26-22 BIRAD 2. Stereotactic core biopsy was done of both breasts on 09-17-21. Right breast 10:00 posterior calcifications of left breast 2:00. The biopsies were done on . The right breast revealed fibrotic fibroadenomatoid stromal hyperplasia in the left breast revealed DCIS. She is presently on Letrazole and tolerating this without difficulty. Caffeine: 2 pop/day nicotine: none chocolate: occasional BCP: none hormones: hysterectomy at 37 and took them until 50, premarin Family History: maternal aunt: of breast cancer paternal cousin: breast cancer sister: bladder cancer Hormonal History: menarche: 10 G0 menopause: hysterectomy at 37 both ovaries were removed; done for pain and she was on Premarin for approximately 14 years Surgical history: Hysterectomy bilateral salpingo-oophorectomy gallbladder tonsil and adenoids Medical History: diabetes/ diet controlled Social History: nicotine: none alcohol: none drugs: none Review of systems: Constitutional: Negative Heart: none Lungs: none GI: none : none psych: none Musculoskeletal:arthritis allergies: as noted bleeding: none Objective - Vital Signs Vital signs: Vital Signs Temp 97.8 F 11/10/22 14:37 Pulse 92 11/10/22 14:37 Resp 17 11/10/22 14:37 BP 134/86 11/10/22 14:37 Pulse Ox 99 11/10/22 14:37 FiO2 Intake & Output 11/09/22 11/10/22 11/10/22 18:59 06:59 18:59 Weight 95.254 kg - Constitutional General appearance: Present: cooperative - EENT Eyes: Present: EOMI ENT: Present: hearing grossly normal - Neck Neck: Present: normal ROM - Respiratory Respiratory: bilateral: CTA - Cardiovascular Rhythm: regular Heart sounds: normal: S1, S2 - Integumentary Integumentary: Present: normal turgor - Musculoskeletal Musculoskeletal: Present: gait normal - Psychiatric Psychiatric: Present: A&O x's 3, appropriate affect, intact judgment & insight - Additional findings Additional findings: Breast Exam: BRA: 42C Inspection: bilateral grade 3 ptosis prior rash under the left breast has resolved Palpation: Right breast: Multiple positional exam fibrocystic changes no dominant masses or nodules of concern Right axilla: No adenopathy of concern Left breast: Multi-positional exam fibrocystic changes no dominant masses or nodules of concern Left axilla: No adenopathy of concern Assessment and Plan Assessment: Impression: Left breast DCIS wide excision no radiation is on an aromatase inhibitor No evidence of recurrent DCIS Patient bilateral mammogram 21622 BIRAD 2 prior rash under left breast resolved Plan: Bilateral mammogram in 2023, with appointment at that time CC: Dr. Holguin
== END ==
LOC: WWCWWP 14:29
PROVIDERS: ATTEND Surgery
DX: D05.11 Intraductal carcinoma in situ of right breast (principal); D05.12 Intraductal carcinoma in situ of left breast; E11.9 Type 2 diabetes mellitus without complications; Z80.3 Family history of malignant neoplasm of breast; Z88.5 Allergy status to narcotic agent; Z88.8 Allergy status to other drugs, medicaments and biological substances

== ENCOUNTER → 2023-04-06 | Outpatient (CLI) | payer MEDICARE, BC ==
[2023-04-06 15:16] LABS: ALT 12 U/L (8-44); AST 16 U/L (13-35); Chol/HDL Ratio 2.24 Ratio; LDL Cholesterol,Calculated 45.8 mg/dL (0.0-131.0)
== END | disposition home or self-care (01) ==
LOC: LABWHC1 10:11
PROVIDERS: ATTEND Internal Medicine Interventional Cardiology
DX: E78.2 Mixed hyperlipidemia (principal)
CPT/HCPCS: 36415; 80061; 84450; 84460

== ENCOUNTER → 2023-05-29 | Outpatient (CLI) | payer MEDICARE, BC ==
--- NOTE | 2023-05-29 11:07 | MM ---
Reason for Exam: Hx of breast cancer, conservation therapy. Last screening mammogram was performed 12 month(s) ago. Patient History: Menarche at age 10. Patient has no children. Left ovary removed at age 37. Right ovary removed at age 37. Hysterectomy at age 37. Postmenopausal. Breast cancer, left, age 71. Estrogen for 13 years from age 37 until age 50. 11/23/2021, Lumpectomy on the Left side. 11/23/2021, Malignant MG pre op needle loc LT on the left side. 09/17/2021, Malignant MG stereo VAD BX LT on the left side. 09/17/2021, Benign MG stereo VAD BX RT on the right side. 10/07/2016, Benign Core Biopsy on the right side. Paternal cousin had breast cancer. Maternal aunt had breast cancer. Tissue Density: The breast tissue is heterogeneously dense. This may lower the sensitivity of mammography. Findings: Analyzed By CAD. Postsurgical changes left breast. There is some very faint regional calcifications central 12:00 left breast which appear punctate on magnification views. New from prior. Short interval follow-up recommended to exclude any suspicious developing calcifications. Overall Assessment: Probably benign, BI-RAD 3 Management: Diagnostic Mammogram of the left breast in 6 months. . Results were given to the patient verbally at the time of exam. Patient should continue monthly self-breast exams. A clinical breast exam by your physician is recommended on an annual basis. This exam should not preclude additional follow-up of suspicious palpable abnormalities. Note on Tatiana scores and lifetime risk: 1. A Tatiana score greater than 3% is considered moderate risk. If this is the case, consider specialist referral to assess eligibility for a risk reducing agent. 2. If overall lifetime risk for the development of breast cancer is 20% or higher, the patient may qualify for future screening with alternating mammogram and breast MRI. Electronically signed and approved by: Génesis Mercado M.D. Radiologist
== END | disposition home or self-care (01) ==
LOC: RADMAMWWP 10:24
PROVIDERS: ATTEND Surgery
DX: R92.333 Mammographic heterogeneous density, bilateral breasts (principal); Z78.0 Asymptomatic menopausal state; Z85.3 Personal history of malignant neoplasm of breast; Z80.3 Family history of malignant neoplasm of breast
CPT/HCPCS: 77066; G0279; 77062

== ENCOUNTER → 2023-06-01 | Outpatient (CLI) | payer MEDICARE, BC ==
--- NOTE | 2023-06-01 14:15 | P.PN ---
Subjective Progress Note Date: 06/01/23 05-12-23 left breast DCIS 4mm, 2021 Nancy is a 72 year old white female status post a left breast lumpectomy for DCIS on 11-23-21. She had a 4 mm area of ductal carcinoma in situ. The margins were negative. She saw a radiation oncology and discussed radiation therapy but opted for close surveillance. She was seen by Dr. Bishop and is presently on letrazole. She is tolerating this without difficulty. She is not complaining of any new lumps masses or nodules of concern in either breast. She has resolution of the left shooting pains in the medial aspect of the breast. She does not know what caused them. This was a fleeting pain it did not last long. Rash under her left breast is also resolved. Her last mammogram was a bilateral screening mammogram 05-29-23, BIRAD 3. Stereotactic core biopsy was done of both breasts on 09-17-21. Right breast 10:00 posterior calcifications of left breast 2:00. The biopsies were done on . The right breast revealed fibrotic fibroadenomatoid stromal hyperplasia in the left breast revealed DCIS. She is presently on Letrazole and tolerating this without difficulty. She is not concerned about any new lumps masses or nodules of concern in either breast. Caffeine: 2 pop/day nicotine: none chocolate: occasional BCP: none hormones: hysterectomy at 37 and took them until 50, premarin Family History: maternal aunt: of breast cancer paternal cousin: breast cancer sister: bladder cancer Hormonal History: menarche: 10 G0 menopause: hysterectomy at 37 both ovaries were removed; done for pain and she was on Premarin for approximately 14 years Surgical history: Hysterectomy bilateral salpingo-oophorectomy gallbladder tonsil and adenoids left breast lumpectomy Medical History: diabetes/ diet controlled Social History: nicotine: none alcohol: none drugs: none Review of systems: Constitutional: Negative Heart: none Lungs: none GI: none : none psych: none Musculoskeletal:arthritis allergies: as noted bleeding: none Objective - Vital Signs Vital signs: Intake & Output 05/31/23 06/01/23 06/01/23 18:59 06:59 18:59 Weight 92.533 kg - Constitutional General appearance: Present: cooperative - EENT ENT: Present: hearing grossly normal - Neck Neck: Present: normal ROM - Respiratory Respiratory: bilateral: CTA - Cardiovascular Heart sounds: normal: S1, S2 - Integumentary Integumentary: Present: normal turgor - Musculoskeletal Musculoskeletal: Present: gait normal - Psychiatric Psychiatric: Present: A&O x's 3, appropriate affect, intact judgment & insight - Additional findings Additional findings: Breast Exam: BRA: 42C Inspection: bilateral grade 3 ptosis prior rash under the left breast has resolved Palpation: Right breast: Multiple positional exam fibrocystic changes no dominant masses or nodules of concern Right axilla: No adenopathy of concern Left breast: Multi-positional exam fibrocystic changes no dominant masses or nodules of concern Left axilla: No adenopathy of concern Assessment and Plan Assessment: Impression: Left breast DCIS wide excision no radiation is on an aromatase inhibitor No evidence of recurrent DCIS Patient bilateral mammogram BIRAD 3, left breast mammogram in 6 months prior rash under left breast resolved Plan: left breast mammogram in 6 months with appointment at that time patient to follow up sooner if any questions CC: Dr. Holguin
[2023-06-01 14:20] VITALS: BP 139/81; PULSE 85; RESP 16; TEMP 98.7
== END ==
LOC: WWCWWP 13:37
PROVIDERS: ATTEND Surgery
DX: D05.11 Intraductal carcinoma in situ of right breast (principal); D05.12 Intraductal carcinoma in situ of left breast; E11.9 Type 2 diabetes mellitus without complications; Z80.3 Family history of malignant neoplasm of breast; Z88.5 Allergy status to narcotic agent; Z88.8 Allergy status to other drugs, medicaments and biological substances; Z79.84 Long term (current) use of oral hypoglycemic drugs

== ENCOUNTER → 2023-08-16 | Outpatient (CLI) | payer MEDICARE, BC ==
--- NOTE | 2023-08-16 15:37 | XR ---
EXAMINATION TYPE: XR wrist complete RT DATE OF EXAM: 08/16/2023 COMPARISON: NONE HISTORY: 73-year-old female right wrist pain, M25.531 TECHNIQUE: 4 views FINDINGS: Mild to moderate degenerative change at both the first CMC and triscaphe joints. Lateral si ded soft tissue swelling. No acute fracture, subluxation, dislocation seen. Osteopenia. IMPRESSION: Mild to moderate degenerative change at the base of the thumb. Osteopenia. Some soft tiss ue swelling especially radially. No acute osseous abnormality seen.
[2023-08-17 02:58] LABS: Basophils # (A) 0.07 X 10*3/uL (0.00-0.10); Eosinophils % (A) 4.3 %; HCT 41.7 % (37.2-46.3); HGB 12.7 g/dL (12.0-15.0); Lymphocytes # (A) 2.14 X 10*3/uL (0.90-5.00); MCH 27.2 pg (27.0-32.0); MCHC 30.5 g/dL (32.0-37.0); MCV 89.3 FL (80.0-97.0); Mean Platelet Volume 9.6 FL (9.5-12.2); Monocytes # (A) 0.47 X 10*3/uL (0.20-1.00); Monocytes % (A) 6.8 %; NRBC Per 100 WBC 0 X 10*3/uL (0.00-0.01); Neutrophils % (A) 56.6 %; Platelet Count 241 X 10*3/uL (140-440); RBC 4.67 X 10*6/uL (4.10-5.20); RDW 13.1 % (11.5-14.5)
[2023-08-17 04:22] LABS: ALT 13 U/L (8-44); AST 19 U/L (13-35); Albumin 4.9 g/dL (3.8-4.9); Albumin/Globulin Ratio 2.13 Ratio (1.60-3.17); Alkaline Phosphatase 58 U/L (41-126); BUN/Creat Ratio 9.11 Ratio (12.00-20.00); Blood Urea Nitrogen 8.2 mg/dL (9.0-27.0); Calcium 9.7 mg/dL (8.7-10.3); Carbon Dioxide 26.5 mmol/L (21.6-31.8); Chloride 102 mmol/L (96-109); Chol/HDL Ratio 2.28 Ratio; Globulin 2.3 g/dL (1.6-3.3); Glucose 94 mg/dL (70-110); LDL Cholesterol,Calculated 47.9 mg/dL (0.0-131.0); Potassium 4.3 mmol/L (3.5-5.5); Sodium 139 mmol/L (135-145); Total Bilirubin 0.9 mg/dL (0.3-1.2); Total Protein 7.2 g/dL (6.2-8.2)
== END | disposition home or self-care (01) ==
LOC: RADXRMAIN 12:04
PROVIDERS: ATTEND Family Medicine
DX: M19.031 Primary osteoarthritis, right wrist (principal); M85.841 Other specified disorders of bone density and structure, right hand; M79.89 Other specified soft tissue disorders; I10 Essential (primary) hypertension; E11.9 Type 2 diabetes mellitus without complications; E78.5 Hyperlipidemia, unspecified
CPT/HCPCS: 80053; 80061; 83036; 84443; 85025

== ENCOUNTER → 2024-01-30 | Outpatient (CLI) | payer MEDICARE, BC ==
--- NOTE | 2024-01-30 14:01 | BD ---
EXAMINATION TYPE: Axial Bone Density DATE OF EXAM: 01/30/2024 CLINICAL HISTORY: 73 years old Female. ICD-10 CODE: M85.88 OTH DISRD OF BONE DENSITY AND STRUCTURE, OT Height: 68 Weight: 211 FRAX RISK QUESTIONS: Alcohol (3 or more units per day): NO Family History (Parent hip fracture): no Glucocorticoids (More than 3mos): no (Ex: prednisone, prednisolone, methylprednisolone, dexamethasone, and hydrocortisone). History of Fracture in Adulthood: no Secondary Osteoporosis: 1. Type 1 Diabetes: no 2. Hyperthyroidism: no 3. Menopause before 45: yes 4. Malnutrition: no 5. Chronic liver disease: no Rheumatoid Arthritis: no Current Tobacco Use: no RISK FACTORS HISTORY OF: Surgery to Spine/Hip(right/left)/Wrist (right/left): no EXAM MEASUREMENTS: Bone mineral densitometry was performed using the Shut Down System. Bone mineral density as measured about the Lumbar spine is: ----- L1-L4(G/cm2): 1.556 T Score Values are as follows: ----- L1: 2.7 ----- L2: 1.9 ----- L3: 3.3 ----- L4: 4.2 ----- L1-L4: 3.1 Z Score Values are as follows: ----- L1: 3.4 ----- L2: 2.6 ----- L3: 4.0 ----- L4: 4.9 ----- L1-L4: 3.9 Bone mineral density has: increased 1.6 % since study of: 12.16.2021 Bone mineral density about the R hip (g/cm2): 1.110 Bone mineral density about the L hip (g/cm2): 1.170 T Score values are as follows: -----R Neck: -0.5 -----L Neck: 0.5 -----R Total: 0.8 -----L Total: 1.3 Z Score values are as follows: -----R Neck: 0.8 -----L Neck: 1.8 -----R Total: 1.8 -----L Total: 2.3 Bone mineral density has: decreased -4.0 % since study of: 12.16.2021 FRAX%s: The graph provided illustrates a 4.7% chance for a major osteoporotic fx and a 0.5% chance fo r the hips probability for fx in 10 years time. IMPRESSION: Normal (Values between +1 and -1 indicate normal bone mass). Consider repeating this study in 5 year s or sooner if there is some new clinical indication. NOTE: T-SCORE=SD OF THE YOUNG ADULT MEAN. [facility], , 01/30/2024 1:58 PM
== END | disposition home or self-care (01) ==
LOC: RADBDWWP 12:52
PROVIDERS: ATTEND Internal Medicine Hematology & Oncology
DX: M85.88 Other specified disorders of bone density and structure, other site
CPT/HCPCS: 77080

== ENCOUNTER → 2024-01-30 | Outpatient (CLI) | payer MEDICARE, BC ==
--- NOTE | 2024-01-30 13:51 | MM ---
Reason for Exam: Follow-up at short interval from prior study. Last screening mammogram was performed 8 month(s) ago. Patient History: Menarche at age 10. Patient has no children. Left ovary removed at age 37. Right ovary removed at age 37. Hysterectomy at age 37. Postmenopausal. Breast cancer, left, age 71. Estrogen for 13 years from age 37 until age 50. 11/23/2021, Lumpectomy on the Left side. 11/23/2021, Malignant MG pre op needle loc LT on the left side. 09/17/2021, Malignant MG stereo VAD BX LT on the left side. 09/17/2021, Benign MG stereo VAD BX RT on the right side. 10/07/2016, Benign Core Biopsy on the right side. Paternal cousin had breast cancer. Maternal aunt had breast cancer. Prior Study Comparison: 08/24/2021 Bilateral MG 3D work up w/cad [facility], [facility]. 05/26/2022 Bilateral MG 3D diag mammo w/cad [facility], [facility]. 05/29/2023 Bilateral MG 3D diag mammo w/cad [facility], [facility]. Tissue Density: Left: The breasts are heterogeneously dense, which may obscure small masses. Findings: Analyzed By CAD. Postoperative changes of lumpectomy left breast without evidence for recurrent mass. No suspicious microcalcifications present. Overall Assessment: Benign, BI-RAD 2 Management: Diagnostic Mammogram of both breasts in 6 months. . Results were given to the patient verbally at the time of exam. Patient should continue monthly self-breast exams. A clinical breast exam by your physician is recommended on an annual basis. This exam should not preclude additional follow-up of suspicious palpable abnormalities. Note on Tatiana scores and lifetime risk: 1. A Tatiana score greater than 3% is considered moderate risk. If this is the case, consider specialist referral to assess eligibility for a risk reducing agent. 2. If overall lifetime risk for the development of breast cancer is 20% or higher, the patient may qualify for future screening with alternating mammogram and breast MRI. [facility], , 01/30/2024 1:44 PM. Electronically signed and approved by: Dom Rodriguez M.D. Radiologis
== END | disposition home or self-care (01) ==
LOC: RADMAMWWP 12:53
PROVIDERS: ATTEND Surgery
CPT/HCPCS: 77061; 77065

== ENCOUNTER → 2024-02-02 | Outpatient (CLI) | payer MEDICARE, BC ==
--- NOTE | 2024-02-02 13:25 | P.PN ---
Subjective Progress Note Date: 02/02/24 Principal diagnosis: DCIS left breast [id number] left breast DCIS 4mm, 2021 Nancy is a 72 year old white female status post a left breast lumpectomy for DCIS on 11-23-21. She had a 4 mm area of ductal carcinoma in situ. The margins were negative. She saw a radiation oncology and discussed radiation therapy but opted for close surveillance. She was seen by Dr. Bishop and is presently on letrazole. She is tolerating this without difficulty. She is not complaining of any new lumps masses or nodules of concern in either breast. She has resolution of the left shooting pains in the medial aspect of the breast. She does not know what caused them. This was a fleeting pain it did not last long. Rash under her left breast is also resolved. Her last mammogram was a bilateral screening mammogram 05-29-23, BIRAD 3, repeat left breast mammogrma on 01-30-24 personally interpreted BIRAD 2. Stereotactic core biopsy was done of both breasts on 09-17-21. Right breast 10:00 posterior calcifications of left breast 2:00. The biopsies were done on . The right breast revealed fibrotic fibroadenomatoid stromal hyperplasia in the left breast revealed DCIS. She is presently on Letrazole and tolerating this without difficulty. She is not concerned about any new lumps masses or nodules of concern in either breast. Bone density done on 01-30-24 normal values consider repeating in 5 years Caffeine: 2 pop/day nicotine: none chocolate: occasional BCP: none hormones: hysterectomy at 37 and took them until 50, premarin Family History: maternal aunt: of breast cancer paternal cousin: breast cancer sister: bladder cancer Hormonal History: menarche: 10 G0 menopause: hysterectomy at 37 both ovaries were removed; done for pain and she was on Premarin for approximately 14 years Surgical history: Hysterectomy bilateral salpingo-oophorectomy gallbladder tonsil and adenoids left breast lumpectomy Medical History: diabetes/ diet controlled Social History: nicotine: none alcohol: none drugs: none Review of systems: Constitutional: Negative Heart: none Lungs: none GI: none : none psych: none Musculoskeletal:arthritis allergies: as noted bleeding: none Objective - Constitutional General appearance: Present: cooperative - EENT Eyes: Present: EOMI ENT: Present: hearing grossly normal - Neck Neck: Present: normal ROM - Respiratory Respiratory: bilateral: CTA - Cardiovascular Heart sounds: normal: S1, S2 - Integumentary Integumentary: Present: normal turgor - Musculoskeletal Musculoskeletal: Present: gait normal - Psychiatric Psychiatric: Present: A&O x's 3, appropriate affect, intact judgment & insight - Additional findings Additional findings: Breast Exam: BRA: 42C Inspection: bilateral grade 3 ptosis prior rash under the left breast has resolved Palpation: Right breast: Multiple positional exam fibrocystic changes no dominant masses or nodules of concern Right axilla: No adenopathy of concern Left breast: Multi-positional exam fibrocystic changes no dominant masses or nodules of concern Left axilla: No adenopathy of concern Assessment and Plan Assessment: Impression: Left breast DCIS wide excision no radiation is on an aromatase inhibitor No evidence of recurrent DCIS Patient bilateral mammogram BIRAD 3, left breast mass mammogram repeated on 01-30-2024, BI-RADS 2 prior rash under left breast resolved bone density normal 01-30-24 Plan: bilateral mammogram in May 2024 with appointment at that time patient to follow up sooner if any questions CC: Dr. Vizcaino
[2024-02-02 13:27] VITALS: BP 129/74; PULSE 89; RESP 16; TEMP 98.1
== END ==
LOC: WWCWWP 12:38
PROVIDERS: ATTEND Surgery

== ENCOUNTER → 2024-05-07 | Outpatient (CLI) | payer MEDICARE, BC ==
[2024-05-07 17:08] LABS: ALT 9 U/L (8-44); AST 17 U/L (13-35); Albumin 4.2 g/dL (3.8-4.9); Alkaline Phosphatase 69 U/L (41-126); BUN/Creat Ratio 23.43 Ratio (12.00-20.00); Blood Urea Nitrogen 16.4 mg/dL (9.0-27.0); Calcium 9.5 mg/dL (8.7-10.3); Carbon Dioxide 25.6 mmol/L (21.6-31.8); Chloride 104 mmol/L (96-109); Chol/HDL Ratio 2.21 Ratio; Globulin 2.8 g/dL (1.6-3.3); Glucose 182 mg/dL (70-110); LDL Cholesterol,Calculated 51.6 mg/dL (0.0-131.0); Potassium 4.6 mmol/L (3.5-5.5); Sodium 141 mmol/L (135-145); Total Bilirubin 0.7 mg/dL (0.3-1.2); VLDL Calculation 17.28 mg/dL (5.00-40.00)
== END | disposition home or self-care (01) ==
LOC: LABWHC1 10:19
PROVIDERS: ATTEND Internal Medicine Interventional Cardiology
DX: I10 Essential (primary) hypertension (principal); E78.2 Mixed hyperlipidemia
CPT/HCPCS: 36415; 80053; 80061

== ENCOUNTER 2024-05-30 13:16 | Inpatient (IN) | payer MEDICARE, BC ==
--- NOTE | 2024-05-30 13:39 | ED ---
General Adult HPI - General Chief complaint: Weakness Stated complaint: weakness Time Seen by Provider: 05/30/24 13:22 Source: patient, EMS, RN notes reviewed, old records reviewed Mode of arrival: EMS Limitations: no limitations - History of Present Illness Initial comments: 73-year-old female presenting with generalized weakness status post fall which occurred approximately 3 days prior. History is obtained from the patient and paramedics. Patient has history of hypertension, diabetes, atrial fibrillation she is currently on Xarelto. She had a fall which is believed to have occurred 3 days prior and patient had remained on the floor for possibly up to 3 full days. She states she was laying on her right hip and does have pain in the right hip. She reports a minor head injury without loss consciousness. No chest pain. She has been unable to eat and drink over this time. Patient was transported by paramedics stable vitals with the exception of atrial fibrillation with RVR. - Related Data Home Medications Medication Instructions Recorded Confirmed Lovastatin [Mevacor] 40 tab PO DIRECTED 10/03/16 05/30/24 metFORMIN HCL [Glucophage] 1,000 mg PO BID 10/03/16 05/30/24 Metoprolol Succinate (ER) [Toprol 100 mg PO DAILY 08/25/21 05/30/24 Xl] amLODIPine [Norvasc] 5 mg PO DAILY 08/25/21 05/30/24 Rivaroxaban [Xarelto] 20 mg PO DAILY 11/18/21 05/30/24 Letrozole 2.5 mg PO DAILY 04/15/22 05/30/24 Diclofenac Sodium 50 mg PO DAILY PRN 05/30/24 05/30/24 Dorzolamide-Timol 2.23%/0.68% 1 drop BOTH EYES BID 05/30/24 05/30/24 [Cosopt] sitaGLIPtin [Januvia] 25 mg PO DAILY 05/30/24 05/30/24 Allergies Allergy/AdvReac Type Severity Reaction Status Date / Time codeine AdvReac Nausea & Verified 05/30/24 14:53 Vomiting prochlorperazine AdvReac Nausea & Verified 05/30/24 14:53 [From Compazine] Vomiting Review of Systems ROS Statement: Those systems with pertinent positive or pertinent negative responses have been documented in the HPI. ROS Other: All systems not noted in ROS Statement are negative. Past Medical History Past Medical History: Atrial Fibrillation, Diabetes Mellitus, Hyperlipidemia, Hypertension, Osteoarthritis (OA) Additional Past Medical History / Comment(s): left breast CA History of Any Multi-Drug Resistant Organisms: None Reported Past Surgical History: Cholecystectomy, Hysterectomy, Tonsillectomy Additional Past Surgical History / Comment(s): yanet breast bx,d&c Past Anesthesia/Blood Transfusion Reactions: No Reported Reaction Past Psychological History: No Psychological Hx Reported Smoking Status: Never smoker Past Alcohol Use History: None Reported Past Drug Use History: None Reported - Past Family History Mother Family Medical History: No Reported History Father Family Medical History: Deep Vein Thrombosis (DVT) General Exam Limitations: no limitations General appearance: alert, in no apparent distress Head exam: Present: atraumatic, normocephalic Eye exam: Present: normal appearance, PERRL ENT exam: Present: mucous membranes dry Neck exam: Present: normal inspection. Absent: tenderness, meningismus Respiratory exam: Present: normal lung sounds bilaterally. Absent: respiratory distress, wheezes Cardiovascular Exam: Present: tachycardia, irregular rhythm GI/Abdominal exam: Present: soft. Absent: distended, tenderness, guarding Extremities exam: Present: other (Ecchymosis over the right hip) Neurological exam: Present: alert, oriented X3. Absent: motor sensory deficit Psychiatric exam: Present: normal affect, normal mood Skin exam: Present: warm, dry Course Vital Signs 05/30/24 05/30/24 13:23 15:47 Temperature 98.6 F Pulse Rate 126 H 112 H Respiratory 22 18 Rate Blood Pressure 142/88 O2 Sat by Pulse 92 L 95 Oximetry Medical Decision Making - Medical Decision Making Was pt. sent in by a medical professional or institution (, PA, STUDIO COORDINATOR, urgent care, hospital, or detention...) When possible be specific @ -No Did you speak to anyone other than the patient for history (EMS, parent, family, police, friend...)? What history was obtained from this source @ -Paramedics Did you review nursing and triage notes (agree or disagree)? Why? @ -I reviewed and agree with nursing and triage notes Were old charts reviewed (outside hosp., previous admission, EMS record, old EKG, old radiological studies, urgent care reports/EKG's, detention records)? Report findings @ -No old charts were reviewed Differential Weakness: Hypoglycemia, shock, sepsis, hyponatremia, anemia, infection, GA, ETOH, adverse medicine reaction, overdose, stroke, this is not meant to be an all-inclusive list. EKG interpreted by me (3pts min.). @ -Atrial fibrillation with RVR rate of 132, QRS duration 92, QTc [address] segment elevation. X-rays interpreted by me (1pt min.). @ -Chest x-ray and pelvis x-ray with right hip are negative for traumatic injury, no acute findings CT interpreted by me (1pt min.). @CT brain negative for intracranial hemorrhage or mass effect U/S interpreted by me (1pt. min.). @ -None done What testing was considered but not performed or refused? (CT, X-rays, U/S, labs)? Why? @ -None What meds were considered but not given or refused? Why? @ -None Did you discuss the management of the patient with other professionals (professionals i.e. , PA, STUDIO COORDINATOR, lab, RT, psych nurse, outreach and education social worker, dairy laboratory technician, teacher, credit review officer, caser shoe parts)? Give summary @ -Billy franklin for [facility] Was smoking cessation discussed for >3mins.? @ -No Was critical care preformed (if so, how long)? @ -No Were there social determinants of health that impacted care today? How? (Homelessness, low income, unemployed, alcoholism, drug addiction, transportation, low edu. Level, literacy, decrease access to med. care, intermediate, rehab)? @ -No Was there de-escalation of care discussed even if they declined (Discuss DNR or withdrawal of care, Hospice)? DNR status @ -No What co-morbidities impacted this encounter? (DM, HTN, Smoking, COPD, CAD, Cancer, CVA, ARF, Chemo, Hep., AIDS, mental health diagnosis, sleep apnea, morbid obesity)? @Atrial fibrillation Was patient admitted / discharged? Hospital course, mention meds given and route, prescriptions, significant lab abnormalities, going to OR and other pertinent info. @ -73-year-old female with fall which occurred 2 or 3 days ago prolonged downtime. Patient does have elevated creatinine kinase at 1000. She appears significantly dehydrated on exam. She is in atrial fibrillation with RVR at a rate around 110 and I suspect this is from volume depletion. Patient has some bruising to the right hip, x-rays are negative for traumatic injury. She does test positive for coronavirus which is likely the cause of her increased weakness in addition to dehydration. Undiagnosed new problem with uncertain prognosis? @ -No Drug Therapy requiring intensive monitoring for toxicity (Heparin, Nitro, Insulin, Cardizem)? @ -No Were any procedures done? @ -No Diagnosis/symptom? @ -Rhabdomyolysis, coronavirus, dehydration, atrial fibrillation Acute, or Chronic, or Acute on Chronic? @ -Acute Uncomplicated (without systemic symptoms) or Complicated (systemic symptoms)? @ -Complicated Side effects of treatment? @ -No Exacerbation, Progression, or Severe Exacerbation? @ -No Poses a threat to life or bodily function? How? (Chest pain, USA, GA, pneumonia, PE, COPD, DKA, ARF, appy, cholecystitis, CVA, Diverticulitis, Homicidal, Suicidal, threat to staff... and all critical care pts) @ -Yes, following completion, arrhythmia, rhabdomyolysis - Lab Data Result diagrams: 05/30/24 13:37 05/30/24 13:37 Lab Results 05/30/24 05/30/24 05/30/24 Range/Units 13:37 13:37 13:37 WBC 8.2 (3.8-10.6) k/uL RBC 4.49 (3.80-5.40) m/uL Hgb 12.0 (11.4-16.0) gm/dL Hct 38.1 (34.0-46.0) % MCV 84.7 (80.0-100.0) fL MCH 26.8 (25.0-35.0) pg MCHC 31.6 (31.0-37.0) g/dL RDW 14.2 (11.5-15.5) % Plt Count 272 (150-450) k/uL MPV 7.8 Neutrophils % 83 % Lymphocytes % 11 % Monocytes % 4 % Eosinophils % 1 % Basophils % 0 % Neutrophils # 6.8 (1.3-7.7) k/uL Lymphocytes # 0.9 L (1.0-4.8) k/uL Monocytes # 0.4 (0-1.0) k/uL Eosinophils # 0.1 (0-0.7) k/uL Basophils # 0.0 (0-0.2) k/uL Hypochromasia Slight PT (10.0-12.5) sec INR (<1.2) APTT (22.0-30.0) sec Sodium 142 (137-145) mmol/L Potassium 3.0 L (3.5-5.1) mmol/L Chloride 101 (98-107) mmol/L Carbon Dioxide 33 H (22-30) mmol/L Anion Gap 8 mmol/L BUN 52 H (7-17) mg/dL Creatinine 0.59 (0.52-1.04) mg/dL Est GFR (CKD-EPI)AfAm >90 (>60 ml/min/1.73 sqM) Est GFR (CKD-EPI)NonAf >90 (>60 ml/min/1.73 sqM) Glucose 257 H (74-99) mg/dL Plasma Lactic Acid Qamar 2.0 (0.7-2.0) mmol/L Calcium 8.9 (8.4-10.2) mg/dL Magnesium 1.9 (1.6-2.3) mg/dL Total Bilirubin 1.9 H (0.2-1.3) mg/dL AST 102 H (14-36) U/L ALT 75 H (4-34) U/L Alkaline Phosphatase 82 (38-126) U/L Creatine Kinase 929 H (30-135) U/L Troponin I (0.000-0.034) ng/mL Total Protein 6.1 L (6.3-8.2) g/dL Albumin 3.5 (3.5-5.0) g/dL Urine Color Urine Appearance (Clear) Urine pH (5.0-8.0) Ur Specific Dana (1.001-1.035) Urine Protein (Negative) Urine Glucose (UA) (Negative) Urine Ketones (Negative) Urine Blood (Negative) Urine Nitrite (Negative) Urine Bilirubin (Negative) Urine Urobilinogen (<2.0) mg/dL Ur Leukocyte Esterase (Negative) Urine RBC (0-5) /hpf Urine WBC (0-5) /hpf Ur Squamous Epith Cells (0-4) /hpf Amorphous Sediment (None) /hpf Urine Mucus (None) /hpf Influenza Type A (PCR) (Not Detectd) Influenza Type B (PCR) (Not Detectd) RSV (PCR) (Not Detectd) SARS-CoV-2 (PCR) (Not Detectd) 05/30/24 05/30/24 05/30/24 Range/Units 13:37 13:53 13:53 WBC (3.8-10.6) k/uL RBC (3.80-5.40) m/uL Hgb (11.4-16.0) gm/dL Hct (34.0-46.0) % MCV (80.0-100.0) fL MCH (25.0-35.0) pg MCHC (31.0-37.0) g/dL RDW (11.5-15.5) % Plt Count (150-450) k/uL MPV Neutrophils % % Lymphocytes % % Monocytes % % Eosinophils % % Basophils % % Neutrophils # (1.3-7.7) k/uL Lymphocytes # (1.0-4.8) k/uL Monocytes # (0-1.0) k/uL Eosinophils # (0-0.7) k/uL Basophils # (0-0.2) k/uL Hypochromasia PT (10.0-12.5) sec INR (<1.2) APTT (22.0-30.0) sec Sodium (137-145) mmol/L Potassium (3.5-5.1) mmol/L Chloride (98-107) mmol/L Carbon Dioxide (22-30) mmol/L Anion Gap mmol/L BUN (7-17) mg/dL Creatinine (0.52-1.04) mg/dL Est GFR (CKD-EPI)AfAm (>60 ml/min/1.73 sqM) Est GFR (CKD-EPI)NonAf (>60 ml/min/1.73 sqM) Glucose (74-99) mg/dL Plasma Lactic Acid Qamar (0.7-2.0) mmol/L Calcium (8.4-10.2) mg/dL Magnesium (1.6-2.3) mg/dL Total Bilirubin (0.2-1.3) mg/dL AST (14-36) U/L ALT (4-34) U/L Alkaline Phosphatase (38-126) U/L Creatine Kinase (30-135) U/L Troponin I 0.020 (0.000-0.034) ng/mL Total Protein (6.3-8.2) g/dL Albumin (3.5-5.0) g/dL Urine Color Yellow Urine Appearance Turbid H (Clear) Urine pH 6.0 (5.0-8.0) Ur Specific Dana 1.035 (1.001-1.035) Urine Protein 1+ H (Negative) Urine Glucose (UA) 4+ H (Negative) Urine Ketones 2+ H (Negative) Urine Blood Trace H (Negative) Urine Nitrite Negative (Negative) Urine Bilirubin 1+ H (Negative) Urine Urobilinogen 6.0 (<2.0) mg/dL Ur Leukocyte Esterase Negative (Negative) Urine RBC 3 (0-5) /hpf Urine WBC 4 (0-5) /hpf Ur Squamous Epith Cells <1 (0-4) /hpf Amorphous Sediment Rare H (None) /hpf Urine Mucus Few H (None) /hpf Influenza Type A (PCR) Not Detected (Not Detectd) Influenza Type B (PCR) Not Detected (Not Detectd) RSV (PCR) Not Detected (Not Detectd) SARS-CoV-2 (PCR) Detected A (Not Detectd) 05/30/24 Range/Units 15:33 WBC (3.8-10.6) k/uL RBC (3.80-5.40) m/uL Hgb (11.4-16.0) gm/dL Hct (34.0-46.0) % MCV (80.0-100.0) fL MCH (25.0-35.0) pg MCHC (31.0-37.0) g/dL RDW (11.5-15.5) % Plt Count (150-450) k/uL MPV Neutrophils % % Lymphocytes % % Monocytes % % Eosinophils % % Basophils % % Neutrophils # (1.3-7.7) k/uL Lymphocytes # (1.0-4.8) k/uL Monocytes # (0-1.0) k/uL Eosinophils # (0-0.7) k/uL Basophils # (0-0.2) k/uL Hypochromasia PT 13.1 H (10.0-12.5) sec INR 1.2 H (<1.2) APTT 19.7 L (22.0-30.0) sec Sodium (137-145) mmol/L Potassium (3.5-5.1) mmol/L Chloride (98-107) mmol/L Carbon Dioxide (22-30) mmol/L Anion Gap mmol/L BUN (7-17) mg/dL Creatinine (0.52-1.04) mg/dL Est GFR (CKD-EPI)AfAm (>60 ml/min/1.73 sqM) Est GFR (CKD-EPI)NonAf (>60 ml/min/1.73 sqM) Glucose (74-99) mg/dL Plasma Lactic Acid Qamar (0.7-2.0) mmol/L Calcium (8.4-10.2) mg/dL Magnesium (1.6-2.3) mg/dL Total Bilirubin (0.2-1.3) mg/dL AST (14-36) U/L ALT (4-34) U/L Alkaline Phosphatase (38-126) U/L Creatine Kinase (30-135) U/L Troponin I (0.000-0.034) ng/mL Total Protein (6.3-8.2) g/dL Albumin (3.5-5.0) g/dL Urine Color Urine Appearance (Clear) Urine pH (5.0-8.0) Ur Specific Dana (1.001-1.035) Urine Protein (Negative) Urine Glucose (UA) (Negative) Urine Ketones (Negative) Urine Blood (Negative) Urine Nitrite (Negative) Urine Bilirubin (Negative) Urine Urobilinogen (<2.0) mg/dL Ur Leukocyte Esterase (Negative) Urine RBC (0-5) /hpf Urine WBC (0-5) /hpf Ur Squamous Epith Cells (0-4) /hpf Amorphous Sediment (None) /hpf Urine Mucus (None) /hpf Influenza Type A (PCR) (Not Detectd) Influenza Type B (PCR) (Not Detectd) RSV (PCR) (Not Detectd) SARS-CoV-2 (PCR) (Not Detectd) Disposition Clinical Impression: Dehydration, Rhabdomyolysis, COVID-19 Disposition: ADMITTED IP TO THIS HOSP Condition: Stable Is patient prescribed a controlled substance at d/c from ED?: No Referrals: Doyle Vizcaino MD [Primary Care Provider] - 1-2 days Time of Disposition: 16:18
[2024-05-30] MEDS: SODIUM CHLORIDE 0.9% 1,000 ML IV ONE (13:57)
[2024-05-30 14:16] LABS: Basophils % (A) 0 %; Eosinophils # (A) 0.1 k/uL (0-0.7); Eosinophils % (A) 1 %; HCT 38.1 % (34.0-46.0); Hypochromasia Slight; Lymphocytes # (A) 0.9 k/uL (1.0-4.8); Lymphocytes % (A) 11 %; MCH 26.8 pg (25.0-35.0); MCHC 31.6 g/dL (31.0-37.0); MCV 84.7 fL (80.0-100.0); Mean Platelet Volume 7.8; Monocytes # (A) 0.4 k/uL (0-1.0); Monocytes % (A) 4 %; Neutrophils # (A) 6.8 k/uL (1.3-7.7); Neutrophils % (A) 83 %; Platelet Count 272 k/uL (150-450); RBC 4.49 m/uL (3.80-5.40); RDW 14.2 % (11.5-15.5); WBC 8.2 k/uL (3.8-10.6)
[2024-05-30 14:25] LABS: Anion Gap 8 mmol/L; Carbon Dioxide 33 mmol/L (22-30); Chloride 101 mmol/L (98-107); Glucose 257 mg/dL (74-99); Sodium 142 mmol/L (137-145)
[2024-05-30 14:26] LABS: ALT 75 U/L (4-34); AST 102 U/L (14-36); African American GFR (CKD) >90 (>60 ml/min/1.73 sqM); Albumin 3.5 g/dL (3.5-5.0); Alkaline Phosphatase 82 U/L (38-126); Blood Urea Nitrogen 52 mg/dL (7-17); Calcium 8.9 mg/dL (8.4-10.2); Creatine Kinase 929 U/L (30-135); Magnesium 1.9 mg/dL (1.6-2.3); Non-African American GFR(CKD) >90 (>60 ml/min/1.73 sqM); Total Bilirubin 1.9 mg/dL (0.2-1.3); Total Protein 6.1 g/dL (6.3-8.2)
--- NOTE | 2024-05-30 14:27 | XR ---
EXAMINATION TYPE: XR chest 2V DATE OF EXAM: 05/30/2024 2:19 PM COMPARISON: Chest radiographs from 08/06/2019 TECHNIQUE: XR chest 2V Frontal and lateral views of the chest. CLINICAL INDICATION:Female, 73 years old with history of Weakness; FINDINGS: Lungs/Pleura: There is no evidence of pleural effusion, focal consolidation, or pneumothorax. Pulmonary vascularity: Unremarkable. Heart/mediastinum: Cardiomediastinal silhouette is prominent in size. Atherosclerotic calcifications are seen in the aorta. Musculoskeletal: Multiple level degenerative disc disease changes seen throughout the spine. No acute osseous abnormality. Other findings: Cholecystectomy clips in the right upper quadrant. Surgical clips in the left breast. IMPRESSION: No acute cardiopulmonary disease/process. [facility], , 05/30/2024 2:25 PM
--- NOTE | 2024-05-30 14:28 | XR ---
EXAMINATION TYPE: XR Hip RT and AP Pelvis DATE OF EXAM: 05/30/2024 2:19 PM INDICATION: Patient age:Female; 73 years old; Reason for study: fall; PHH. pain COMPARISON: None. TECHNIQUE: The right hip was examined in the frontal and lateral projections and a AP pelvis. FINDINGS: No evidence of any acute osseous pathology, joint dislocation, or soft tissue swelling. Deg enerative changes of the visualized lumbar spine. Left-sided pelvic phlebolith. IMPRESSION: No acute osseous pathology. [facility], , 05/30/2024 2:26 PM
[2024-05-30 14:50] LABS: Influenza A Not Detected (Not Detectd); Influenza B Not Detected (Not Detectd); RSV Not Detected (Not Detectd)
[2024-05-30] MEDS: POTASSIUM CHLORIDE ER 20 MEQ TAB.ER PO STA (14:56)
[2024-05-30 15:06] LABS: Amorphous Sediment,Urine Rare /hpf; Appearance,Urine Turbid (Clear); Bilirubin,Urine 1+ (Negative); Blood,Urine Trace (Negative); Color,Urine Yellow; Glucose,Urine (UA) 4+ (Negative); Leukocyte Esterase,Urine Negative (Negative); Mucus,Urine Few /hpf; Nitrite,Urine Negative (Negative); Protein,Urine 1+ (Negative); RBC,Urine 3 /hpf (0-5); Specific Gravity,Urine 1.035 (1.001-1.035); Squamous Epithelial Cell,Urine <1 /hpf (0-4); WBC,Urine 4 /hpf (0-5)
[2024-05-30 15:10] LABS: Ketones,Urine 2+ (Negative)
--- NOTE | 2024-05-30 15:25 | CT ---
EXAMINATION TYPE: CT brain wo con DATE OF EXAM: 05/30/2024 COMPARISON: None CLINICAL INDICATION: Female, 73 years old with history of weakness; PHH, WEAKNESS CT DLP: 1047.1 mGycm Automated exposure control for dose reduction was used. Findings: The ventricles, basal cisterns and sulci over the convexities are moderately enlarged. There is no ma ss effect or shift of the midline structures. There is no acute intra or extra-axial hemorrhage. The posterior fossa including the brainstem, fourth ventricle and cerebellar pontine angles appear no rmal. Intraorbital contents appear normal and symmetric. There is mucosal thickening and air-fluid level in the right maxillary sinus consistent with acute an d chronic right maxillary sinusitis. The mastoid air cells and middle ear cavities are well aerated. Calvarium is intact. IMPRESSION: 1. No acute bleed or mass effect. 2. Moderate generalized atrophy. 3. Acute and chronic inflammatory changes in the right maxillary sinus. [facility], , 05/30/2024 3:22 PM
[2024-05-30 16:04] LABS: INR 1.2 (<1.2); Prothrombin Time 13.1 sec (10.0-12.5)
[2024-05-30 16:06] LABS: Partial Thromboplastin Time 19.7 sec (22.0-30.0)
[2024-05-30] MEDS ORDERED: NALOXONE 0.4 MG/ML 1 ML VIAL IV PRN (16:10)
[2024-05-30] MEDS ORDERED: ONDANSETRON 4 MG/2 ML VIAL IVP PRN (16:10)
[2024-05-30] MEDS ORDERED: MELATONIN 3 MG TABLET PO PRN (16:35)
[2024-05-30] MEDS ORDERED: DEXTROSE 50% SYRINGE 50 ML IVP PRN ×2 (16:36)
--- NOTE | 2024-05-30 16:51 | P.HPIM ---
History of Present Illness H&P Date: 05/30/24 Patient is a 73-year-old female with past medical history of A-fib on Xarelto, type II DM, HLD, HTN, osteoarthritis, left breast cancer status post left breast lumpectomy for DCIS in 2021, on letrozole,, who presented for generalized weakness. Patient had a fall 4 days ago, she states it was mechanical caused by right knee pain that started because she had 2 other falls earlier this May, 1 time she slipped on the ice, no syncope, associated chest pain or shortness of breath. She spent 3 days on the floor, not able to eat or drink, not taking her medications including Xarelto, she was found by her nephew and his son who helped her to the bed, she stated that she is okay so they left. Nephew visited next day and again found her on the floor. Patient shared that she was just too weak to walk and had another fall. She saw her primary care physician around 1 week ago, she states that her Farxiga was stopped because it was making her itchy, she was also started on antibiotics for UTI, has 1 more day left. Admits having dysuria still, no bowel habit changes. She complains of bilateral knee pain right more than left, right lower extremity swelling that started after the fall. On arrival afebrile, heart rate in 120s, BP 142/88, satting at 92% on room air. Blood work: No leukocytosis, stable normal hemoglobin, platelet count, sodium 142, potassium low 3.0, bicarb 33, creatinine 0.59, total bilirubin elevated 1.9, AST and ALT elevated 102 and 75 accordingly, CK 929, UA positive for proteinuria, glucosuria, ketones, trace blood but RBC count is 3, negative leukocyte Estrace. Elevated glucose in the serum 257. Patient tested positive for COVID EKG showed A-fib with RVR. Chest x-ray showed no acute process. X-ray hip right and pelvis showed no osseous pathology. CT head showed no acute bone late or mass effect, moderate generalized atrophy, acute and chronic inflammatory changes in the right maxillary sinus. Patient admitted for further management of generalized weakness, recurrent falls, rhabdomyolysis. Patient's potassium was replaced, she was started on IV fluids.ordered bilateral knee x-ray, RLE venous duplex due to concern for VTE and from prolonged immobilization while of anticoagulation. Pertinent positives and negatives as discussed in HPI, a complete review of systems was performed and all other systems are negative. Patient seen and examined at bedside. Patient's nephew present at bedside Vital signs reviewed General: nontoxic, no distress, appears at stated age Derm: warm, dry Head: atraumatic, normocephalic, symmetric Eyes: EOMI, no lid lag, anicteric sclera, pupils equal round reactive to light ENT: Nose and ears atraumatic Neck: No thyromegaly, supple Mouth: no lip lesion, mucus membranes moist Cardiovascular: S1S2 reg, tachycardic, irregular Lungs: clear to auscultation bilateral, no rhonchi, no rales, no wheeze, no accessory muscle use Abdominal: soft, nontender to palpation, no guarding, no appreciable organome carson Ext: no gross muscle atrophy, muscle strength muscle strength 4 out of 5 in all 4 extremities, no contractures, right lower extremity trace edema, bilateral knee tenderness, bruises Neuro: CN II-XII grossly intact Psych: Alert, oriented, appropriate affect Assessment/Plan: Generalized weakness Recurrent falls Rhabdomyolysis Hypokalemia -Continue IV fluids with NS at 100 cc/h -Potassium replaced, recheck levels -Recheck CK in the morning -PT OT, social work Elevated liver enzymes -Denies abdominal pain, will follow-up with CMP Bilateral knee pain -Bilateral knee x-ray ordered Right lower extremity edema -Resume home Xarelto, venous duplex ordered A-fib with RVR -Patient was off her home medications for 4 days -Resume Toprol-XL 100 daily, resume Xarelto 20 daily COVID infection -Not hypoxic, continue to monitor Recent UTI Dysuria -Still complains of dysuria, has not completed her antibiotics, does not remember the name, will provide with IV ceftriaxone [Chronic:] Type II DM: Hold patient's Januvia 25 daily, metformin 1000 twice daily, started on Accu-Cheks and SSI Hyperlipidemia: Will hold lovastatin in the settings of rhabdomyolysis, should be okay to to resume at discharge Hypertension: Continue home amlodipine 5, Toprol-XL 100 daily History of breast cancer, continue letrozole The patient is admitted with an anticipated [greater] than 2 midnight stay as [inpatient/] status for evaluation of rhabdomyolysis, weakness. CODE STATUS: No code DVT prophylaxis: Xarelto Anticipated discharge date: 24-[address]: [facility] A total of 40 minutes was spent on the care of this complex patient more than 50% of the time was spent in counseling and care coordination.ER course: Past Medical History Past Medical History: Atrial Fibrillation, Diabetes Mellitus, Hyperlipidemia, Hypertension, Osteoarthritis (OA) Additional Past Medical History / Comment(s): left breast CA History of Any Multi-Drug Resistant Organisms: None Reported Past Surgical History: Cholecystectomy, Hysterectomy, Tonsillectomy Additional Past Surgical History / Comment(s): yanet breast bx,d&c Past Anesthesia/Blood Transfusion Reactions: No Reported Reaction Past Psychological History: No Psychological Hx Reported Smoking Status: Never smoker Past Alcohol Use History: None Reported Past Drug Use History: None Reported - Past Family History Mother Family Medical History: No Reported History Father Family Medical History: Deep Vein Thrombosis (DVT) Medications and Allergies Home Medications Medication Instructions Recorded Confirmed Type Lovastatin [Mevacor] 40 tab PO DIRECTED 10/03/16 05/30/24 History metFORMIN HCL [Glucophage] 1,000 mg PO BID 10/03/16 05/30/24 History Metoprolol Succinate (ER) [Toprol 100 mg PO DAILY 08/25/21 05/30/24 History Xl] amLODIPine [Norvasc] 5 mg PO DAILY 08/25/21 05/30/24 History Rivaroxaban [Xarelto] 20 mg PO DAILY 11/18/21 05/30/24 History Letrozole 2.5 mg PO DAILY 04/15/22 05/30/24 History Diclofenac Sodium 50 mg PO DAILY PRN 05/30/24 05/30/24 History Dorzolamide-Timol 2.23%/0.68% 1 drop BOTH EYES BID 05/30/24 05/30/24 History [Cosopt] sitaGLIPtin [Januvia] 25 mg PO DAILY 05/30/24 05/30/24 History Allergies Allergy/AdvReac Type Severity Reaction Status Date / Time codeine AdvReac Nausea & Verified 05/30/24 14:53 Vomiting prochlorperazine AdvReac Nausea & Verified 05/30/24 14:53 [From Compazine] Vomiting Physical Exam Vitals: Vital Signs Temp Pulse Resp BP Pulse Ox 05/30/24 15:47 112 H 18 95 05/30/24 13:23 98.6 F 126 H 22 142/88 92 L Intake and Output 05/30/24 05/30/24 05/30/24 06:59 14:59 22:59 Other: Weight 95.254 kg Results CBC & Chem 7: 05/30/24 13:37 05/30/24 13:37 Labs: Abnormal Lab Results - Last 24 Hours (Table) 05/30/24 05/30/24 05/30/24 Range/Units 13:37 13:37 13:53 Lymphocytes # 0.9 L (1.0-4.8) k/uL PT (10.0-12.5) sec INR (<1.2) APTT (22.0-30.0) sec Potassium 3.0 L (3.5-5.1) mmol/L Carbon Dioxide 33 H (22-30) mmol/L BUN 52 H (7-17) mg/dL Glucose 257 H (74-99) mg/dL Total Bilirubin 1.9 H (0.2-1.3) mg/dL AST 102 H (14-36) U/L ALT 75 H (4-34) U/L Creatine Kinase 929 H (30-135) U/L Total Protein 6.1 L (6.3-8.2) g/dL Urine Appearance Turbid H (Clear) Urine Protein 1+ H (Negative) Urine Glucose (UA) 4+ H (Negative) Urine Ketones 2+ H (Negative) Urine Blood Trace H (Negative) Urine Bilirubin 1+ H (Negative) Amorphous Sediment Rare H (None) /hpf Urine Mucus Few H (None) /hpf SARS-CoV-2 (PCR) (Not Detectd) 05/30/24 05/30/24 Range/Units 13:53 15:33 Lymphocytes # (1.0-4.8) k/uL PT 13.1 H (10.0-12.5) sec INR 1.2 H (<1.2) APTT 19.7 L (22.0-30.0) sec Potassium (3.5-5.1) mmol/L Carbon Dioxide (22-30) mmol/L BUN (7-17) mg/dL Glucose (74-99) mg/dL Total Bilirubin (0.2-1.3) mg/dL AST (14-36) U/L ALT (4-34) U/L Creatine Kinase (30-135) U/L Total Protein (6.3-8.2) g/dL Urine Appearance (Clear) Urine Protein (Negative) Urine Glucose (UA) (Negative) Urine Ketones (Negative) Urine Blood (Negative) Urine Bilirubin (Negative) Amorphous Sediment (None) /hpf Urine Mucus (None) /hpf SARS-CoV-2 (PCR) Detected A (Not Detectd)
--- NOTE | 2024-05-30 16:55 | XR ---
EXAMINATION TYPE: XR knee complete bilateral DATE OF EXAM: 05/30/2024 4:50 PM INDICATION: Patient age:Female; 73 years old; Reason for study: knee pain, falls; PHH. pain COMPARISON: None. TECHNIQUE: Both kidneys were examined in frontal, crosstable lateral and oblique projections. FINDINGS: No evidence of any acute osseous pathology, soft tissue swelling, or joint effusion is no nick. Bilateral tricompartmental joint space narrowing with marginal osteophytosis most prominent invo lving the bilateral medial tibiofemoral joint spaces. Bilateral suprapatellar spurring demonstrated. IMPRESSION: 1. No acute osseous pathology. 2. Mild bilateral tricompartmental osteoarthritic changes. [facility], , 05/30/2024 4:52 PM
[2024-05-30 16:58] LABS: Glucose,Whole Blood 224 mg/dL (70-110)
[2024-05-30] MEDS: SODIUM CHLORIDE 0.9% 1,000 ML IV SCH (17:24)
[2024-05-30] MEDS: SODIUM CHLORIDE 0.9% 500 ML 500 ML IV ONE (17:26)
[2024-05-30] MEDS: METOPROLOL SUCCINATE (ER) 100 MG TAB.ER.24H PO SCH (17:30)
[2024-05-30] MEDS: INSULIN LISPRO (HumaLOG) 100 UNIT/ML 10 mL VL SQ SCH (17:31)
--- NOTE | 2024-05-30 19:48 | US ---
EXAMINATION TYPE: US venous doppler duplex LE RT DATE OF EXAM: 05/30/2024 7:05 PM COMPARISON: NONE CLINICAL INDICATION: Female, 73 years old with history of Right lower extremity swelling; pt states f all and pain. no hx dvt. on thinners, Pain TECHNIQUE: The lower extremity deep venous system is examined utilizing real time linear array sonog brando with graded compression, color doppler sonography, and spectral doppler. SIDE PERFORMED: right FINDINGS: VESSELS IMAGED: Common Femoral Vein Deep Femoral Vein Greater Saphenous Vein * Femoral Vein Popliteal Vein Small Saphenous Vein * Proximal Calf Veins (* superficial vessels) limited views posterior to the knee due to patient unable to rotate leg to side for imaging Right Leg: appears negative for dvt, Color Doppler imaging shows patency of the vessels. Spectral wa veforms are within normal limits. IMPRESSION: No ultrasound evidence for deep venous thrombosis. [facility], , 05/30/2024 7:46 PM
[2024-05-30 20:10] LABS: Glucose,Whole Blood 372 mg/dL (70-110)
[2024-05-30] MEDS: DORZOLAMIDE-TIMOLOL 2.23%/0.68 10ML BTL BOTH EYES SCH (20:21)
[2024-05-31 06:17] LABS: Glucose,Whole Blood 231 mg/dL (70-110)
[2024-05-31 07:26] LABS: Basophils % (A) 0 %; Eosinophils # (A) 0.1 k/uL (0-0.7); Eosinophils % (A) 2 %; HCT 36.1 % (34.0-46.0); HGB 11.1 gm/dL (11.4-16.0); Hypochromasia Marked; Lymphocytes # (A) 1.1 k/uL (1.0-4.8); Lymphocytes % (A) 16 %; MCH 26.7 pg (25.0-35.0); MCHC 30.6 g/dL (31.0-37.0); Mean Platelet Volume 7.1; Monocytes # (A) 0.4 k/uL (0-1.0); Monocytes % (A) 6 %; Neutrophils # (A) 5.4 k/uL (1.3-7.7); Neutrophils % (A) 76 %; Platelet Count 252 k/uL (150-450); RBC 4.15 m/uL (3.80-5.40); WBC 7.1 k/uL (3.8-10.6)
[2024-05-31 07:40] LABS: ALT 58 U/L (4-34); AST 61 U/L (14-36); African American GFR (CKD) >90 (>60 ml/min/1.73 sqM); Albumin 2.7 g/dL (3.5-5.0); Alkaline Phosphatase 68 U/L (38-126); Anion Gap 8 mmol/L; Bilirubin, Delta 0.3 mg/dL (0.0-0.2); Bilirubin,Unconjugated 0.8 mg/dL (0.0-1.1); Blood Urea Nitrogen 48 mg/dL (7-17); Calcium 8.2 mg/dL (8.4-10.2); Carbon Dioxide 32 mmol/L (22-30); Chloride 102 mmol/L (98-107); Creatine Kinase 439 U/L (30-135); Glucose 192 mg/dL (74-99); Magnesium 1.8 mg/dL (1.6-2.3); Non-African American GFR(CKD) 88 (>60 ml/min/1.73 sqM); Potassium 2.9 mmol/L (3.5-5.1); Sodium 142 mmol/L (137-145); Total Bilirubin 1.1 mg/dL (0.2-1.3); Total Protein 5.2 g/dL (6.3-8.2)
[2024-05-31] MEDS: RIVAROXABAN 20 MG TAB PO SCH (08:24)
[2024-05-31] MEDS: amLODIPine 5 MG TAB PO SCH (08:24)
[2024-05-31] MEDS: POTASSIUM CHLORIDE ER 20 MEQ TAB.ER PO SCH (10:22)
[2024-05-31] MEDS: LETROZOLE 2.5 MG TAB PO SCH (10:23)
[2024-05-31 11:43] LABS: Glucose,Whole Blood 235 mg/dL (70-110)
[2024-05-31 16:31] LABS: Glucose,Whole Blood 352 mg/dL (70-110)
--- NOTE | 2024-05-31 18:12 | P.PN ---
Subjective Progress Note Date: 05/31/24 No new complaints. K still low at 2.9. Otherwise, pt doing well today, ongoing care and following labs. Gen: In NAD, non-toxic HEENT: normocephalic, atraumatic, hearing acuity is intant, mucous membranes moist CVS: perfusing all extremities well, no pitting edema, Respiratory: symmetric chest expansion, no accessory muscle use, GI: soft, NTTP, ND, : no suprapubic tenderness, no CVA tenderness MSK/Derm: no rashes, cyanosis Neuro: CN II-XII intact, no motor weakness, Psych: cooperative, euthymic mood, judgment and insight is intact Hospital course: Patient is a 73-year-old female with past medical history of A-fib on Xarelto, type II DM, HLD, HTN, osteoarthritis, left breast cancer status post left breast lumpectomy for DCIS in 2021, on letrozole,, who presented for generalized weakness. On arrival afebrile, heart rate in 120s, BP 142/88, satting at 92% on room air. Blood work: No leukocytosis, stable normal hemoglobin, platelet count, sodium 142, potassium low 3.0, bicarb 33, creatinine 0.59, total bilirubin elevated 1.9, AST and ALT elevated 102 and 75 accordingly, CK 929, UA positive for proteinuria, glucosuria, ketones, trace blood but RBC count is 3, negative nick kocyte Estrace. Elevated glucose in the serum 257. Patient tested positive for COVID EKG showed A-fib with RVR. Chest x-ray showed no acute process. X-ray hip right and pelvis showed no osseous pathology. CT head showed no acute bone late or mass effect, moderate generalized atrophy, acute and chronic inflammatory changes in the right maxillary sinus. Patient admitted for further management of generalized weakness, recurrent falls, rhabdomyolysis. Patient's potassium was replaced, she was started on IV fluids.ordered bilateral knee x-ray, RLE venous duplex due to concern for VTE and from prolonged immobilization while of anticoagulation. Assessment/Plan: Generalized weakness Recurrent falls Hypokalemia -Continue IV fluids with NS at 100 cc/h -Potassium replaced again, recheck levels -PT OT, social work Elevated liver enzymes -Denies abdominal pain, will follow-up with CMP Bilateral knee pain -Bilateral knee x-ray ordered Right lower extremity edema -Resume home Xarelto, venous duplex ordered A-fib with RVR, now controlled -Patient was off her home medications for 4 days -Resume Toprol-XL 100 daily, resume Xarelto 20 daily COVID infection -Not hypoxic, continue to monitor Recent UTI Dysuria -Still complains of dysuria, has not completed her antibiotics, does not remember the name, will provide with IV ceftriaxone [Chronic:] Type II DM: Hold patient's Januvia 25 daily, metformin 1000 twice daily, started on Accu-Cheks and SSI Hyperlipidemia: Will hold lovastatin in the settings of rhabdomyolysis, should be okay to to resume at discharge Hypertension: Continue home amlodipine 5, Toprol-XL 100 daily History of breast cancer, continue letrozole The patient is admitted with an anticipated [greater] than 2 midnight stay as [inpatient/] status for evaluation of rhabdomyolysis, weakness. CODE STATUS: No code DVT prophylaxis: Xarelto Anticipated discharge date: 24-[address]: TBD Objective - Vital Signs Vital signs: Vital Signs Temp 97.4 F L 05/31/24 15:38 Pulse 91 05/31/24 15:38 Resp 20 05/31/24 15:38 BP 126/80 05/31/24 15:38 Pulse Ox 99 05/31/24 15:38 FiO2 Intake & Output 05/30/24 05/31/24 05/31/24 18:59 06:59 18:59 Intake Total 1150 Balance 1150 Weight 95.254 kg 95.254 kg Intake: Intake, IV Titration 1150 Amount Sodium Chloride 0.9% 1, 1100 000 ml @ 100 mls/hr IV . Q10H [facility] Rx#:[id number] cefTRIAXone 1 gm In 50 Sodium Chloride 0.9% 50 ml @ 100 mls/hr IVPB Q24HR [facility] Rx#:[id number] Other: Voiding Method Toilet # Voids 1 1 - Labs CBC & Chem 7: 05/31/24 05:56 05/31/24 05:56 Labs: Abnormal Lab Results - Last 24 Hours (Table) 05/30/24 05/30/24 05/31/24 Range/Units 18:26 20:08 05:56 Hgb (11.4-16.0) gm/dL MCHC (31.0-37.0) g/dL Potassium 3.4 L (3.5-5.1) mmol/L Carbon Dioxide (22-30) mmol/L BUN (7-17) mg/dL Glucose (74-99) mg/dL POC Glucose (mg/dL) 372 H (70-110) mg/dL Hemoglobin A1c 7.7 H (<=6.0) % Calcium (8.4-10.2) mg/dL Delta Bilirubin (0.0-0.2) mg/dL AST (14-36) U/L ALT (4-34) U/L Creatine Kinase (30-135) U/L Total Protein (6.3-8.2) g/dL Albumin (3.5-5.0) g/dL 05/31/24 05/31/24 05/31/24 Range/Units 05:56 05:56 06:15 Hgb 11.1 L (11.4-16.0) gm/dL MCHC 30.6 L (31.0-37.0) g/dL Potassium 2.9 L (3.5-5.1) mmol/L Carbon Dioxide 32 H (22-30) mmol/L BUN 48 H (7-17) mg/dL Glucose 192 H (74-99) mg/dL POC Glucose (mg/dL) 231 H (70-110) mg/dL Hemoglobin A1c (<=6.0) % Calcium 8.2 L (8.4-10.2) mg/dL Delta Bilirubin 0.3 H (0.0-0.2) mg/dL AST 61 H (14-36) U/L ALT 58 H (4-34) U/L Creatine Kinase 439 H (30-135) U/L Total Protein 5.2 L (6.3-8.2) g/dL Albumin 2.7 L (3.5-5.0) g/dL 05/31/24 05/31/24 Range/Units 11:41 16:29 Hgb (11.4-16.0) gm/dL MCHC (31.0-37.0) g/dL Potassium (3.5-5.1) mmol/L Carbon Dioxide (22-30) mmol/L BUN (7-17) mg/dL Glucose (74-99) mg/dL POC Glucose (mg/dL) 235 H 352 H (70-110) mg/dL Hemoglobin A1c (<=6.0) % Calcium (8.4-10.2) mg/dL Delta Bilirubin (0.0-0.2) mg/dL AST (14-36) U/L ALT (4-34) U/L Creatine Kinase (30-135) U/L Total Protein (6.3-8.2) g/dL Albumin (3.5-5.0) g/dL
[2024-05-31 20:11] LABS: Glucose,Whole Blood 293 mg/dL (70-110)
[2024-06-01 06:04] LABS: Glucose,Whole Blood 229 mg/dL (70-110)
[2024-06-01 10:52] LABS: Basophils # (A) 0.1 k/uL (0-0.2); Basophils % (A) 1 %; Eosinophils # (A) 0.3 k/uL (0-0.7); Eosinophils % (A) 3 %; HCT 41.4 % (34.0-46.0); HGB 12.5 gm/dL (11.4-16.0); Hypochromasia Marked; Lymphocytes # (A) 1.8 k/uL (1.0-4.8); Lymphocytes % (A) 22 %; MCHC 30.1 g/dL (31.0-37.0); MCV 89.7 fL (80.0-100.0); Mean Platelet Volume 7.6; Monocytes # (A) 0.3 k/uL (0-1.0); Monocytes % (A) 4 %; Neutrophils # (A) 5.6 k/uL (1.3-7.7); Neutrophils % (A) 68 %; Platelet Count 297 k/uL (150-450); RBC 4.61 m/uL (3.80-5.40); RDW 14.3 % (11.5-15.5); WBC 8.2 k/uL (3.8-10.6)
[2024-06-01 11:21] LABS: African American GFR (CKD) >90 (>60 ml/min/1.73 sqM); Anion Gap 7 mmol/L; Blood Urea Nitrogen 40 mg/dL (7-17); Calcium 8.4 mg/dL (8.4-10.2); Carbon Dioxide 29 mmol/L (22-30); Chloride 103 mmol/L (98-107); Glucose 295 mg/dL (74-99); Magnesium 1.8 mg/dL (1.6-2.3); Non-African American GFR(CKD) 88 (>60 ml/min/1.73 sqM); Potassium 3.5 mmol/L (3.5-5.1); Sodium 139 mmol/L (137-145)
[2024-06-01 11:41] LABS: Glucose,Whole Blood 331 mg/dL (70-110)
--- NOTE | 2024-06-01 15:10 | P.PN ---
Subjective Progress Note Date: 06/01/24 No new complaints. K improved to 3.5. Otherwise, pt doing well today, pending PT evaluation and possible SNF placement as pt reports she would not be able to care for self at home. Gen: In NAD, non-toxic HEENT: normocephalic, atraumatic, hearing acuity is intant, mucous membranes moist CVS: perfusing all extremities well, no pitting edema, Respiratory: symmetric chest expansion, no accessory muscle use, GI: soft, NTTP, ND, : no suprapubic tenderness, no CVA tenderness MSK/Derm: no rashes, cyanosis Neuro: CN II-XII intact, no motor weakness, Psych: cooperative, euthymic mood, judgment and insight is intact Hospital course: Patient is a 73-year-old female with past medical history of A-fib on Xarelto, type II DM, HLD, HTN, osteoarthritis, left breast cancer status post left breast lumpectomy for DCIS in 2021, on letrozole,, who presented for generalized weakness. On arrival afebrile, heart rate in 120s, BP 142/88, satting at 92% on room air. Blood work: No leukocytosis, stable normal hemoglobin, platelet count, sodium 142, potassium low 3.0, bicarb 33, creatinine 0.59, total bilirubin elevated 1.9, AST and ALT elevated 102 and 75 accordingly, CK 929, UA positive for p roteinuria, glucosuria, ketones, trace blood but RBC count is 3, negative leukocyte Estrace. Elevated glucose in the serum 257. Patient tested positive for COVID EKG showed A-fib with RVR. Chest x-ray showed no acute process. X-ray hip right and pelvis showed no osseous pathology. CT head showed no acute bone late or mass effect, moderate generalized atrophy, acute and chronic inflammatory ch anges in the right maxillary sinus. Patient admitted for further management of generalized weakness, recurrent falls, rhabdomyolysis. Patient's potassium was replaced, she was started on IV fluids.ordered bilateral knee x-ray, RLE venous duplex due to concern for VTE and from prolonged immobilization while of anticoagulation. Assessment/Plan: Generalized weakness Recurrent falls Hypokalemia -Continue IV fluids with NS at 100 cc/h -Potassium replaced again, recheck levels -PT OT, social work Elevated liver enzymes -Denies abdominal pain, will follow-up with CMP Bilateral knee pain -Bilateral knee x-ray ordered Right lower extremity edema -Resume home Xarelto, venous duplex ordered A-fib with RVR, now controlled -Patient was off her home medications for 4 days -Resume Toprol-XL 100 daily, resume Xarelto 20 daily COVID infection -Not hypoxic, continue to monitor Recent UTI Dysuria -Still complains of dysuria, has not completed her antibiotics, does not remember the name, will provide with IV ceftriaxone [Chronic:] Type II DM: Hold patient's Januvia 25 daily, metformin 1000 twice daily, started on Accu-Cheks and SSI Hyperlipidemia: Will hold lovastatin in the settings of rhabdomyolysis, should be okay to to resume at discharge Hypertension: Continue home amlodipine 5, Toprol-XL 100 daily History of breast cancer, continue letrozole The patient is admitted with an anticipated [greater] than 2 midnight stay as [inpatient/] status for evaluation of rhabdomyolysis, weakness. CODE STATUS: No code DVT prophylaxis: Xarelto Anticipated discharge date: 24-[address]: TBD Objective - Vital Signs Vital signs: Vital Signs Temp 97.9 F 06/01/24 12:00 Pulse 90 06/01/24 12:00 Resp 18 06/01/24 12:00 BP 117/95 06/01/24 12:00 Pulse Ox 97 06/01/24 12:00 FiO2 Intake & Output 05/31/24 06/01/24 06/01/24 18:59 06:59 18:59 Intake Total 1150 Output Total 100 Balance 1150 -100 Intake: Intake, IV Titration 1150 Amount Sodium Chloride 0.9% 1, 1100 000 ml @ 100 mls/hr IV . Q10H [facility] Rx#:[id number] cefTRIAXone 1 gm In 50 Sodium Chloride 0.9% 50 ml @ 100 mls/hr IVPB Q24HR [facility] Rx#:[id number] Output: Urine 100 Other: Voiding Method Toilet External Catheter # Voids 1 1 - Labs CBC & Chem 7: 06/01/24 09:54 06/01/24 09:54 Labs: Abnormal Lab Results - Last 24 Hours (Table) 05/31/24 05/31/24 06/01/24 Range/Units 16:29 20:09 06:03 MCHC (31.0-37.0) g/dL BUN (7-17) mg/dL Glucose (74-99) mg/dL POC Glucose (mg/dL) 352 H 293 H 229 H (70-110) mg/dL 06/01/24 06/01/24 06/01/24 Range/Units 09:54 09:54 11:38 MCHC 30.1 L (31.0-37.0) g/dL BUN 40 H (7-17) mg/dL Glucose 295 H (74-99) mg/dL POC Glucose (mg/dL) 331 H (70-110) mg/dL Microbiology - Last 24 Hours (Table) 05/30/24 13:53 Blood Culture - Preliminary Blood
[2024-06-01] MEDS: ACETAMINOPHEN TAB 325 MG TAB PO PRN (16:30)
[2024-06-01 16:44] LABS: Glucose,Whole Blood 245 mg/dL (70-110)
[2024-06-01 20:05] LABS: Glucose,Whole Blood 267 mg/dL (70-110)
[2024-06-02 06:10] LABS: Glucose,Whole Blood 245 mg/dL (70-110)
[2024-06-02 06:54] LABS: Basophils % (A) 1 %; Eosinophils # (A) 0.2 k/uL (0-0.7); Eosinophils % (A) 4 %; HGB 11.1 gm/dL (11.4-16.0); Hypochromasia Marked; Lymphocytes # (A) 1.4 k/uL (1.0-4.8); Lymphocytes % (A) 27 %; MCH 26.5 pg (25.0-35.0); MCV 88.5 fL (80.0-100.0); Mean Platelet Volume 7.3; Monocytes # (A) 0.4 k/uL (0-1.0); Monocytes % (A) 7 %; Neutrophils # (A) 3.2 k/uL (1.3-7.7); Neutrophils % (A) 60 %; Platelet Count 259 k/uL (150-450); RBC 4.18 m/uL (3.80-5.40); RDW 14.2 % (11.5-15.5); WBC 5.4 k/uL (3.8-10.6)
[2024-06-02 07:12] LABS: African American GFR (CKD) >90 (>60 ml/min/1.73 sqM); Anion Gap 3 mmol/L; Blood Urea Nitrogen 34 mg/dL (7-17); Calcium 8.2 mg/dL (8.4-10.2); Carbon Dioxide 34 mmol/L (22-30); Chloride 102 mmol/L (98-107); Glucose 230 mg/dL (74-99); Magnesium 1.6 mg/dL (1.6-2.3); Non-African American GFR(CKD) 90 (>60 ml/min/1.73 sqM); Potassium 3.6 mmol/L (3.5-5.1); Sodium 139 mmol/L (137-145)
[2024-06-02] MEDS: DICLOFENAC SODIUM GEL 50 GM TUBE TOPICAL SCH (09:06)
[2024-06-02] MEDS: INSULIN GLARGINE (LANTUS) 100 UNIT/ML SYR SQ STA (10:45)
[2024-06-02 11:47] LABS: Glucose,Whole Blood 246 mg/dL (70-110)
--- NOTE | 2024-06-02 13:21 | P.PN ---
Subjective Progress Note Date: 06/02/24 No new complaints. Pending SNF placement. Gen: In NAD, non-toxic HEENT: normocephalic, atraumatic, hearing acuity is intant, mucous membranes moist CVS: perfusing all extremities well, no pitting edema, Respiratory: symmetric chest expansion, no accessory muscle use, GI: soft, NTTP, ND, : no suprapubic tenderness, no CVA tenderness MSK/Derm: no rashes, cyanosis Neuro: CN II-XII intact, no motor weakness, Psych: cooperative, euthymic mood, judgment and insight is intact Hospital course: Patient is a 73-year-old female with past medical history of A-fib on Xarelto, type II DM, HLD, HTN, osteoarthritis, left breast cancer status post left breast lumpectomy for DCIS in 2021, on letrozole,, who presented for generalized weakness. On arrival afebrile, heart rate in 120s, BP 142/88, satting at 92% on room air. Blood work: No leukocytosis, stable normal hemoglobin, platelet count, sodium 142, potassium low 3.0, bicarb 33, creatinine 0.59, total bilirubin elevated 1.9, AST and ALT elevated 102 and 75 accordingly, CK 929, UA positive for proteinuria, glucosuria, ketones, trace blood but RBC count is 3, negative leukocyte Estrace. Elevated glucose in the serum 257. Patient tested positive for COVID EKG showed A-fib with RVR. Chest x-ray showed no acute process. X-ray hip r ight and pelvis showed no osseous pathology. CT head showed no acute bone late or mass effect, moderate generalized atrophy, acute and chronic inflammatory changes in the right maxillary sinus. Patient admitted for further management of generalized weakness, recurrent falls, rhabdomyolysis. Patient's potassium was replaced, she was started on IV fluids.ordered bilateral knee x-ray, RLE venous duplex due to concern for VTE and from prolonged immobilization while of anticoagulation. Assessment/Plan: Generalized weakness Recurrent falls Hypokalemia -Continue IV fluids with NS at 100 cc/h -Potassium replaced again, recheck levels -PT OT, social work Elevated liver enzymes -Denies abdominal pain, will follow-up with CMP Bilateral knee pain -Bilateral knee x-ray ordered Right lower extremity edema -Resume home Xarelto, venous duplex ordered A-fib with RVR, now controlled -Patient was off her home medications for 4 days -Resume Toprol-XL 100 daily, resume Xarelto 20 daily COVID infection -Not hypoxic, continue to monitor Recent UTI Dysuria -Still complains of dysuria, has not completed her antibiotics, does not remember the name, will provide with IV ceftriaxone [Chronic:] Type II DM: Hold patient's Januvia 25 daily, metformin 1000 twice daily, started on Accu-Cheks and SSI Hyperlipidemia: Will hold lovastatin in the settings of rhabdomyolysis, should be okay to to resume at discharge Hypertension: Continue home amlodipine 5, Toprol-XL 100 daily History of breast cancer, continue letrozole The patient is admitted with an anticipated [greater] than 2 midnight stay as [inpatient/] status for evaluation of rhabdomyolysis, weakness. CODE STATUS: No code DVT prophylaxis: Xarelto Anticipated discharge date: 24-[address]: TBD Objective - Vital Signs Vital signs: Vital Signs Temp 98.1 F 06/02/24 10:43 Pulse 81 06/02/24 12:30 Resp 16 06/02/24 10:43 BP 135/84 06/02/24 10:43 Pulse Ox 99 06/02/24 10:43 FiO2 21 06/02/24 09:46 Intake & Output 06/01/24 06/02/24 06/02/24 18:59 06:59 18:59 Intake Total 128 540 Output Total 200 Balance -72 540 Intake: IV 10 Invasive Line 2 10 Oral 118 540 Output: Urine 200 Other: Voiding Method External Catheter External Catheter External Catheter # Voids 2 # Bowel Movements 1 - Labs CBC & Chem 7: 06/02/24 05:52 06/02/24 05:52 Labs: Abnormal Lab Results - Last 24 Hours (Table) 06/01/24 06/01/24 06/02/24 Range/Units 16:42 20:03 05:52 Hgb 11.1 L (11.4-16.0) gm/dL MCHC 30.0 L (31.0-37.0) g/dL Carbon Dioxide (22-30) mmol/L BUN (7-17) mg/dL Glucose (74-99) mg/dL POC Glucose (mg/dL) 245 H 267 H (70-110) mg/dL Calcium (8.4-10.2) mg/dL 06/02/24 06/02/24 06/02/24 Range/Units 05:52 06:09 11:46 Hgb (11.4-16.0) gm/dL MCHC (31.0-37.0) g/dL Carbon Dioxide 34 H (22-30) mmol/L BUN 34 H (7-17) mg/dL Glucose 230 H (74-99) mg/dL POC Glucose (mg/dL) 245 H 246 H (70-110) mg/dL Calcium 8.2 L (8.4-10.2) mg/dL Microbiology - Last 24 Hours (Table) 05/30/24 13:53 Blood Culture - Preliminary Blood
[2024-06-02 16:29] LABS: Glucose,Whole Blood 277 mg/dL (70-110)
[2024-06-02 20:08] LABS: Glucose,Whole Blood 259 mg/dL (70-110)
[2024-06-03 06:10] LABS: Glucose,Whole Blood 168 mg/dL (70-110)
[2024-06-03] MEDS: INSULIN GLARGINE (LANTUS) 100 UNIT/ML SYR SQ SCH (06:42)
[2024-06-03 11:14] VITALS: BP 129/65; PULSE 78; RESP 20; TEMP 97.9
[2024-06-03 11:25] LABS: Glucose,Whole Blood 175 mg/dL (70-110)
--- NOTE | 2024-06-03 13:58 | P.DS ---
Providers Date of admission: 05/30/24 16:11 Expected date of discharge: 06/03/24 Attending physician: Mk Arcos Primary care physician: Doyle Vizcaino MD Hospital Course: Generalized weakness Recurrent falls Hypokalemia Elevated liver enzymes Bilateral knee pain Right lower extremity edema A-fib with RVR, now controlled COVID infection Recent UTI Dysuria Type II DM: Hyperlipidemia: Hypertension: History of breast cancer Gen: In NAD, non-toxic HEENT: normocephalic, atraumatic, hearing acuity is intant, mucous membranes moist CVS: perfusing all extremities well, no pitting edema, Respiratory: symmetric chest expansion, no accessory muscle use, GI: soft, NTTP, ND, : no suprapubic tenderness, no CVA tenderness MSK/Derm: no rashes, cyanosis Neuro: CN II-XII intact, no motor weakness, Psych: cooperative, euthymic mood, judgment and insight is intact Hospital course: Patient is a 73-year-old female with past medical history of A-fib on Xarelto, type II DM, HLD, HTN, osteoarthritis, left breast cancer status post left breast lumpectomy for DCIS in 2021, on letrozole,, who presented for generalized weakness. On arrival afebrile, heart rate in 120s, BP 142/88, satting at 92% on room air. Blood work: No leukocytosis, stable normal hemoglobin, platelet count, sodium 142, potassium low 3.0, bicarb 33, creatinine 0.59, total bilirubin elevated 1.9, AST and ALT elevated 102 and 75 accordingly, CK 929, UA positive for proteinuria, glucosuria, ketones, trace blood but RBC count is 3, negative leukocyte Estrace. Elevated glucose in the serum 257. Patient tested positive for COVID EKG showed A-fib with RVR. Chest x-ray showed no acute process. X-ray hip right and pelvis showed no osseous pathology. CT head showed no acute bone late or mass effect, moderate generalized atrophy, acute and chronic inflammatory changes in the right maxillary sinus. Patient admitted for further management of generalized weakness, recurrent falls, rhabdomyolysis. Patient's potassium was replaced, she was started on IV fluids.ordered bilateral knee x-ray, RLE venous duplex due to concern for VTE and from prolonged immobilization while of anticoagulation was negative for DVT. Patient was also treated with ceftriaxone for urinary tract infection. Patient was seen by physical therapy who recommended patient be admitted to nursing home facility for rehab. Patient was accepted following 3 nights of hospitalization. I spent 38 minutes coordinating this discharge Patient Condition at Discharge: Good Plan - Discharge Summary Discharge Rx Participant: Yes New Discharge Prescriptions: New Diclofenac Sodium Gel [Voltaren 1% Gel] 2 gm TOPICAL QID gm Continue metFORMIN HCL [Glucophage] 1,000 mg PO BID Lovastatin [Mevacor] 40 tab PO DIRECTED Metoprolol Succinate (ER) [Toprol XL] 100 mg PO DAILY Letrozole 2.5 mg PO DAILY Dorzolamide-Timol 2.23%/0.68% [Cosopt] 1 drop BOTH EYES BID amLODIPine [Norvasc] 5 mg PO DAILY Rivaroxaban [Xarelto] 20 mg PO DAILY sitaGLIPtin [Januvia] 25 mg PO DAILY Diclofenac Sodium 50 mg PO DAILY PRN PRN Reason: Severe Pain (Scale 7 To 10) Discharge Medication List Lovastatin [Mevacor] 40 tab PO DIRECTED 10/03/16 [History] metFORMIN HCL [Glucophage] 1,000 mg PO BID 10/03/16 [History] Metoprolol Succinate (ER) [Toprol XL] 100 mg PO DAILY 08/25/21 [History] amLODIPine [Norvasc] 5 mg PO DAILY 08/25/21 [History] Rivaroxaban [Xarelto] 20 mg PO DAILY 11/18/21 [History] Letrozole 2.5 mg PO DAILY 04/15/22 [History] Diclofenac Sodium 50 mg PO DAILY PRN 05/30/24 [History] Dorzolamide-Timol 2.23%/0.68% [Cosopt] 1 drop BOTH EYES BID 05/30/24 [History] sitaGLIPtin [Januvia] 25 mg PO DAILY 05/30/24 [History] Diclofenac Sodium Gel [Voltaren 1% Gel] 2 gm TOPICAL QID gm 06/03/24 [Rx] Follow up Appointment(s)/Referral(s): Doyle Vizcaino MD [Primary Care Provider] - 1-2 days Discharge Disposition: TRANSFER TO SNF/ECF
--- NOTE | 2024-06-03 15:03 | CDI ---
Documentation Clarification Form Date: 06/03/2024 02:35:41 PM From: Bety Linn RN, CCDS Phone: [phone] Admit Date: 05/30/2024 04:11:00 PM Patient Name: Nancy Hill Visit Number: [id number] Discharge Date: ATTENTION: The Clinical Documentation Specialists (CDI) and [facility] Coding Staff appreciate your assistance in clarifying documentation. Please respond to the clarification below the line at the bottom and electronically sign. The CDI & [facility] Coding staff will review the response and follow-up if needed. Please note: Queries are made part of the Legal Health Record. If you have any questions, please contact the author of this message via ITS. Doctor. Luis Angel Fior Rhabdomyolysis is documented in the H/P and subsequent progress notes. Additional clarification regarding the type of rhabdomyolysis is requested. History/Risk Factors: generalized weakness. Atrial Fibrillation, Diabetes Mellitus, Clinical Indicators: 73-year-old female had fall 4 days ago with history of multiple falls. She spent 3 days on the floor, not able to eat or drink, not taking her medications. The nephew visited and again found her on the floor, and she had another fall. \ VS 142/88 120 92% RA. COVID Positive. EKG showed A-fib with RVR 132 BPM Labs: CK 929, 439 Treatment: Traffic Investigator /Telemetry .9NS@100 ML/HR Monitor CK per orders Please clarify the type of rhabdomyolysis, if known: [ x ] Traumatic rhabdomyolysis due to fall [ ] Traumatic rhabdomyolysis due to prolonged immobility [ ] Non traumatic rhabdomyolysis due to infection (please specify) [ ] Other, please specify [ ] Unable to Determine (Template Last Revised: June 2020) MTDD
--- NOTE | 2024-06-03 15:40 | CDI ---
Date: 06/03/2024 03:20:00 PM From: Bety Linn Phone: [phone] Admit Date: 05/30/2024 04:11:00 PM Patient Name: Nancy Hill Visit Number: [id number] Discharge Date: ATTENTION: The Clinical Documentation Specialists (CDI) and [facility] Coding Staff appreciate your assistance in clarifying documentation. Please respond to the clarification below the line at the bottom and electronically sign. The CDI & [facility] Coding staff will review the response and follow-up if needed. Please note: Queries are made part of the Legal Health Record. If you have any questions, please contact the author of this message via ITS. Doctor. Luis Angel Childress Atrial Fibrillation with RVR is documented in the H/P and subsequent progress notes. Additional clarification regarding the type of atrial fibrillation is requested. History/Risk Factors: generalized weakness. Atrial Fibrillation, Diabetes Mellitus, Clinical Indicators: 73-year-old female had fall 4 days ago with history of multiple falls. VS 142/88 120 92% RA. EKG showed A-fib with RVR 132 BPM Treatment: Regasification Plant Operator /Telemetry Toprol Xl 100MG PO Daily, Norvasc 5 MG PO Daily Xarelto 20MG PO Daiily Please clarify the type of atrial fibrillation, if known: [ x ] Chronic [ ] Permanent [ ] Paroxysmal [ ] Persistent [ ] Other, please specify [ ] Unable to determine (Template Last Revised: August 2020) MTDD
== END 2024-06-03 16:33 | DRG 564 ==
LOC: EC 13:16 → 4SSUR 16:11 → 3SCARD 19:32 → 3NCARDOBS 06-02 21:51 → 3SCARD 06-02 21:55
PROVIDERS: ADMIT Student in an Organized Health Care Education/Training Program; ATTEND Student in an Organized Health Care Education/Training Program
DX: T79.6XXA Traumatic ischemia of muscle, initial encounter (principal); U07.1 COVID-19; I48.20 Chronic atrial fibrillation, unspecified; E86.0 Dehydration; E11.9 Type 2 diabetes mellitus without complications; I10 Essential (primary) hypertension; N39.0 Urinary tract infection, site not specified; E78.5 Hyperlipidemia, unspecified; E87.6 Hypokalemia; R29.6 Repeated falls; R74.8 Abnormal levels of other serum enzymes; M25.561 Pain in right knee; M25.562 Pain in left knee; R60.0 Localized edema; Z85.3 Personal history of malignant neoplasm of breast; Z79.84 Long term (current) use of oral hypoglycemic drugs; Z79.899 Other long term (current) drug therapy; Z79.811 Long term (current) use of aromatase inhibitors; Z90.710 Acquired absence of both cervix and uterus; W19.XXXA Unspecified fall, initial encounter
CPT/HCPCS: 36415; 70450; 71046; 73502; 80048; 80053; 81001; 82248; 82550; 83036; 83605; 83735; 84132; 84484; 85025; 85610; 85730; 87040; 87636; 93005; 94760; 96361; 96365; 99285

== ENCOUNTER → 2024-07-12 | Outpatient (CLI) | payer MEDICARE, BC | END | disposition home or self-care (01) | LOC: LABWHC1 10:57 | PROVIDERS: ATTEND Podiatrist | DX: L89.512 Pressure ulcer of right ankle, stage 2 (principal); L89.612 Pressure ulcer of right heel, stage 2; E11.621 Type 2 diabetes mellitus with foot ulcer; M21.371 Foot drop, right foot; M21.372 Foot drop, left foot | CPT/HCPCS: 36415; 84134 ==

== ENCOUNTER → 2024-11-01 | Outpatient (CLI) | payer MEDICARE, BC ==
[2024-11-01 15:57] LABS: ALT 11 U/L (8-44); AST 19 U/L (13-35); Albumin 4.2 g/dL (3.8-4.9); Albumin/Globulin Ratio 1.91 Ratio (1.60-3.17); Alkaline Phosphatase 48 U/L (41-126); Anion Gap 10.80 mmol/L (4.00-12.00); BUN/Creat Ratio 23.00 Ratio (12.00-20.00); Blood Urea Nitrogen 13.8 mg/dL (9.0-27.0); Calcium 9.7 mg/dL (8.7-10.3); Carbon Dioxide 27.2 mmol/L (21.6-31.8); Chloride 102 mmol/L (96-109); Cholesterol 105.00 mg/dL (0.00-200.00); Globulin 2.2 g/dL (1.6-3.3); Glucose 123 mg/dL (70-110); HDL Cholesterol 52.70 mg/dL (40.00-60.00); LDL Cholesterol,Calculated 40.0 mg/dL (0.0-131.0); Potassium 4.5 mmol/L (3.5-5.5); Sodium 140 mmol/L (135-145); Total Protein 6.4 g/dL (6.2-8.2); Triglycerides 61.70 mg/dL (0.00-149.00); VLDL Calculation 12.34 mg/dL (5.00-40.00)
== END | disposition home or self-care (01) ==
LOC: LABWHC1 10:28
PROVIDERS: ATTEND Psychiatry & Neurology Neurology
DX: E78.2 Mixed hyperlipidemia (principal); M21.379 Foot drop, unspecified foot; M54.10 Radiculopathy, site unspecified
CPT/HCPCS: 36415; 80053; 80061; 86787